=== PATIENT | male | born 1930 | race Two or more races ===

== ENCOUNTER 2016-07-03 22:44 | Inpatient (IN) | payer BC, MEDICARE, OTHER ==
[~2016-07-03] VITALS: Ht 182.9 cm; Wt 72.6 kg
[~2016-07-03 22:44] MED LIST: ATOR20TA PO; BRIM5DRO3 EACHEYE; DONE10TA4 PO; LATA2.5D7 EACHEYE; MEMA28CA PO; METF500T4 PO; WARF5TAB77 PO
[2016-07-03] MEDS ORDERED: DEXT1DRO3 OP (23:11)
[2016-07-03] MEDS ORDERED: LORA0.5T PO (23:11)
[2016-07-03] MEDS ORDERED: QUET25TA PO (23:11)
[2016-07-03] MEDS ORDERED: DORZ10DR11 EACHEYE (23:11)
[2016-07-03] MEDS ORDERED: ACET650T10 PO (23:11)
[2016-07-03] MEDS ORDERED: PANT40TA4 PO (23:11)
[2016-07-03] MEDS ORDERED: MEMA10TA21 PO (23:11)
[2016-07-03] MEDS ORDERED: WARF3TAB6 PO (23:11)
[2016-07-03] MEDS ORDERED: MAGN400O6 PO (23:11)
[2016-07-03] MEDS ORDERED: NA P133E RC (23:11)
[2016-07-03] MEDS ORDERED: BISA10SU8 RC (23:11)
[2016-07-03] MEDS ORDERED: VALP250S3 PO (23:11)
[2016-07-03 23:21] LABS: KETONES,URINE 1+ (NEGATIVE); LEUKOCYTE ESTERASE ,URINE NEGATIVE (NEGATIVE)
[2016-07-03 23:22] LABS: ANION GAP 11 (5-14); CALCIUM, SERUM 8.9 mg/dL (8.5-10.1); CARBON DIOXIDE 32 mmol/L (21-32); CHLORIDE 105 mmol/L (98-107); CREATININE 1.9 mg/dL (0.6-1.3); GLUCOSE 177 mg/dL (74-106); POTASSIUM 4.2 mmol/L (3.5-5.1); SODIUM SERUM 144 mmol/L (136-145); UREA NITROGEN, BLOOD 37 mg/dL (7-18)
[2016-07-03 23:23] LABS: BASOPHILS % (AUTO) 0.3 % (0.0-2.0); DIFF TOTAL % 100 %; EOSINOPHILS # (AUTO) 0.1 /CMM (0.0-0.7); EOSINOPHILS % (AUTO) 0.8 % (0.0-6.0); HEMATOCRIT 41 % (39-51); HEMOGLOBIN 13.4 g/dL (13.5-17.5); LYMPHOCYTES # (AUTO) 1.9 /CMM (0.8-4.8); LYMPHOCYTES % (AUTO) 27.5 % (20.0-44.0); MEAN CORPUSCULAR HEMOGLOBIN 29 PG (26.0-33.0); MEAN CORPUSCULAR HGB CONC 32 g/dl (31.0-36.0); MEAN CORPUSCULAR VOLUME 88 fL (80-96); MONOCYTES # (AUTO) 0.7 /CMM (0.1-1.30); MONOCYTES % (AUTO) 10.8 % (2.0-12.0); NEUTROPHILS # (AUTO) 4.2 /CMM (1.8-8.9); NEUTROPHILS % (AUTO) 60.6 % (43.0-81.0); PLATELET COUNT (AUTO) 150 /CMM (150-450); RED BLOOD CELL COUNT(AUTO) 4.67 MIL/uL (4.5-6.0); WHITE BLOOD COUNT (AUTO) 6.9 K/uL (4.3-11.0)
[2016-07-03 23:26] LABS: ADD UA MICROSCOPIC YES
[2016-07-03 23:27] LABS: ALANINE AMINOTRANSFERASE 19 U/L (12-78); ALBUMIN 3.6 g/dL (3.4-5.0); ASPARTATE AMINOTRANSFERASE 19 U/L (15-37); BILIRUBIN,DIRECT 0.2 mg/dL (0.0-0.2); BILIRUBIN,TOTAL 0.9 mg/dL (0.2-1.0); INDIRECT BILIRUBIN 0.7 mg/dL (0.0-1.1); TOTAL PROTEIN, SERUM 7.7 g/dL (6.4-8.2)
[2016-07-03 23:27] LABS: CANNABINOID, URINE NEGATIVE (NEGATIVE); PHENCYCLIDINE SCREEN,URINE NEGATIVE (NEGATIVE)
[2016-07-03 23:28] LABS: ADD URINE CULTURE NO; RBC,URINE NONE SEEN /HPF (0-2); WBC,URINE 0-2 /HPF (0-3)
[2016-07-03 23:29] LABS: ACETAMINOPHEN 0 ug/ml (10-30); SALICYLATE 0.3 mg/dL (2.8-20.0)
[2016-07-03] MEDS ORDERED: IV NS 0.9% 1,000 ML ONE (23:48)
[2016-07-03] MEDS ORDERED: IV SET PRIMARY 1 EA INFUS.SET MC ONE (23:48)
[2016-07-04] MEDS ORDERED: IV NS 0.9% 1,000 ML BAG IV ONE
[2016-07-04] MEDS ORDERED: MAGNESIUM HYDROXIDE 30 ML UDC PO PRN ×2 (03:00→08:00)
[2016-07-04] MEDS ORDERED: LORAZEPAM 0.5 MG TABLET PO PRN (03:00)
[2016-07-04] MEDS ORDERED: MAG HYDROX/AL HYDROX/SIMETH 30 ML UDC PO PRN (03:00)
[2016-07-04] MEDS ORDERED: ACETAMINOPHEN 325 MG TABLET PO PRN (03:00)
[2016-07-04 08:00] VITALS: BP 122/74
[2016-07-04] MEDS ORDERED: BISACODYL SUPP (10 MG) 10 MG/SUPP.RECT SUPP.RECT RC PRN (08:00)
[2016-07-04] MEDS ORDERED: TIMOLOL MAL/DORZOLAM HCL OPHTH 10 ML BOTTLE EACHEYE SCH (09:00)
[2016-07-04 10:21] LABS: CREATININE 1.4 mg/dL (0.6-1.3)
[2016-07-04] MEDS: METFORMIN 500 MG TABLET PO SCH ×2 (10:22→17:09)
[2016-07-04] MEDS: DIVALPROEX SODIUM 250 MG TABLET.DR PO SCH ×2 (10:22→12:44)
[2016-07-04 11:04] LABS: INR 2.55 (0.87-1.13); PROTHROMBIN TIME 27.8 SECS (9.5-12.7)
[2016-07-04] MEDS: POLYVINYL ALCOHOL 15 ML BOTTLE EACHEYE SCH ×3 (11:23→17:10)
[2016-07-04] MEDS: TIMOLOL 0.5% SOLN OPHTH 5 ML BOTTLE EACHEYE SCH ×3 (11:23→17:10)
[2016-07-04] MEDS: DORZOLAMIDE OPTH 2% 10 ML BOTTLE EACHEYE SCH ×3 (11:24→17:10)
[2016-07-04] MEDS ORDERED: QUETIAPINE FUMARATE 25 MG TABLET PO SCH (14:30)
[2016-07-04] MEDS ORDERED: DIVALPROEX SODIUM 125 MG CAP.SPRINK PO SCH (14:30)
[2016-07-04 16:00] VITALS: BP 105/64
[2016-07-04] MEDS: DIVALPROEX SODIUM 125 MG CAP.SPRINK PO SCH (17:08)
[2016-07-04] MEDS: WARFARIN SODIUM 1 MG TABLET PO SCH (17:08)
[2016-07-04] MEDS: MEMANTINE HCL 5 MG TABLET PO SCH (17:09)
[2016-07-04] MEDS: QUETIAPINE FUMARATE 25 MG TABLET PO SCH (17:09)
[2016-07-04 20:00] VITALS: BP 115/80
[2016-07-04] MEDS: LATANOPROST EYE DROP 0.005% 2.5 ML BOTTLE EACHEYE SCH (21:45)
[2016-07-04] MEDS: PANTOPRAZOLE 40 MG TABLET.DR PO SCH (21:45)
[2016-07-04] MEDS: DONEPEZIL 5 MG TABLET PO SCH (21:45)
[2016-07-04] MEDS: ATORVASTATIN 10 MG TABLET PO SCH (21:46)
[2016-07-05] MEDS: TEMAZEPAM 7.5 MG CAPSULE PO PRN (00:15)
[2016-07-05 08:00] VITALS: BP 118/69
[2016-07-05 09:59] LABS: INR 2.55 (0.87-1.13); PROTHROMBIN TIME 27.8 SECS (9.5-12.7)
[2016-07-05] MEDS: MEMANTINE HCL 5 MG TABLET PO SCH ×2 (10:37→17:46)
[2016-07-05] MEDS: METFORMIN 500 MG TABLET PO SCH ×2 (10:37→17:43)
[2016-07-05] MEDS: QUETIAPINE FUMARATE 25 MG TABLET PO SCH ×2 (10:38→17:36)
[2016-07-05] MEDS: DIVALPROEX SODIUM 125 MG CAP.SPRINK PO SCH ×3 (10:38→17:32)
[2016-07-05] MEDS: TIMOLOL 0.5% SOLN OPHTH 5 ML BOTTLE EACHEYE SCH ×2 (10:39→17:48)
[2016-07-05] MEDS: POLYVINYL ALCOHOL 15 ML BOTTLE EACHEYE SCH ×2 (10:39→17:48)
[2016-07-05] MEDS: DORZOLAMIDE OPTH 2% 10 ML BOTTLE EACHEYE SCH ×2 (10:39→17:49)
[2016-07-05 16:00] VITALS: BP 100/60
[2016-07-05] MEDS: WARFARIN SODIUM 1 MG TABLET PO SCH (17:42)
[2016-07-05 20:00] VITALS: BP 102/67
[2016-07-05] MEDS: LATANOPROST EYE DROP 0.005% 2.5 ML BOTTLE EACHEYE SCH (21:05)
[2016-07-05] MEDS: PANTOPRAZOLE 40 MG TABLET.DR PO SCH (21:06)
[2016-07-05] MEDS: ATORVASTATIN 10 MG TABLET PO SCH (21:06)
[2016-07-05] MEDS: DONEPEZIL 5 MG TABLET PO SCH (21:06)
[2016-07-06] MEDS: TEMAZEPAM 7.5 MG CAPSULE PO PRN (01:16)
[2016-07-06 08:00] VITALS: BP 152/76
[2016-07-06] MEDS: DORZOLAMIDE OPTH 2% 10 ML BOTTLE EACHEYE SCH ×2 (08:38→17:00)
[2016-07-06] MEDS: DIVALPROEX SODIUM 125 MG CAP.SPRINK PO SCH ×3 (08:38→17:00)
[2016-07-06] MEDS: TIMOLOL 0.5% SOLN OPHTH 5 ML BOTTLE EACHEYE SCH ×2 (08:38→17:00)
[2016-07-06] MEDS: POLYVINYL ALCOHOL 15 ML BOTTLE EACHEYE SCH ×2 (08:38→17:00)
[2016-07-06] MEDS: QUETIAPINE FUMARATE 25 MG TABLET PO SCH ×2 (08:39→17:00)
[2016-07-06] MEDS: MEMANTINE HCL 5 MG TABLET PO SCH ×2 (08:39→17:00)
[2016-07-06] MEDS: METFORMIN 500 MG TABLET PO SCH ×2 (08:39→17:00)
[2016-07-06 08:53] LABS: INR 3.47 (0.87-1.13)
[2016-07-06] MEDS ORDERED: Z GUARD REMEDY 2 OZ OINT TP SCH (11:30)
[2016-07-06 16:00] VITALS: BP 122/90
[2016-07-06 20:00] VITALS: BP 130/79
[2016-07-06] MEDS: PANTOPRAZOLE 40 MG TABLET.DR PO SCH (22:00)
[2016-07-06] MEDS: LATANOPROST EYE DROP 0.005% 2.5 ML BOTTLE EACHEYE SCH (22:00)
[2016-07-06] MEDS: DONEPEZIL 5 MG TABLET PO SCH (22:00)
[2016-07-06] MEDS: ATORVASTATIN 10 MG TABLET PO SCH (22:00)
[2016-07-07 08:11] VITALS: BP 105/62
[2016-07-07 08:12] LABS: BASOPHILS % (AUTO) 0.4 % (0.0-2.0); DIFF TOTAL % 100 %; EOSINOPHILS # (AUTO) 0.1 /CMM (0.0-0.7); EOSINOPHILS % (AUTO) 1.9 % (0.0-6.0); HEMATOCRIT 41 % (39-51); HEMOGLOBIN 13.5 g/dL (13.5-17.5); LYMPHOCYTES # (AUTO) 1.8 /CMM (0.8-4.8); LYMPHOCYTES % (AUTO) 31.3 % (20.0-44.0); MEAN CORPUSCULAR HEMOGLOBIN 29 PG (26.0-33.0); MEAN CORPUSCULAR HGB CONC 33 g/dl (31.0-36.0); MEAN CORPUSCULAR VOLUME 88 fL (80-96); MONOCYTES # (AUTO) 0.5 /CMM (0.1-1.30); MONOCYTES % (AUTO) 8.3 % (2.0-12.0); NEUTROPHILS # (AUTO) 3.4 /CMM (1.8-8.9); NEUTROPHILS % (AUTO) 58.1 % (43.0-81.0); PLATELET COUNT (AUTO) 145 /CMM (150-450); RED BLOOD CELL COUNT(AUTO) 4.67 MIL/uL (4.5-6.0); WHITE BLOOD COUNT (AUTO) 5.9 K/uL (4.3-11.0)
[2016-07-07 08:16] LABS: INR 2.91 (0.87-1.13); PROTHROMBIN TIME 31.8 SECS (9.5-12.7)
[2016-07-07] MEDS: DIVALPROEX SODIUM 125 MG CAP.SPRINK PO SCH ×3 (08:55→17:25)
[2016-07-07] MEDS: METFORMIN 500 MG TABLET PO SCH ×2 (08:55→17:25)
[2016-07-07] MEDS: MEMANTINE HCL 5 MG TABLET PO SCH ×2 (08:55→17:25)
[2016-07-07] MEDS: QUETIAPINE FUMARATE 25 MG TABLET PO SCH ×2 (08:56→17:25)
[2016-07-07 09:33] LABS: CALCIUM, SERUM 9.2 mg/dL (8.5-10.1); CREATININE 1.3 mg/dL (0.6-1.3); POTASSIUM 4.2 mmol/L (3.5-5.1)
[2016-07-07] MEDS: DORZOLAMIDE OPTH 2% 10 ML BOTTLE EACHEYE SCH ×2 (09:42→17:31)
[2016-07-07] MEDS: TIMOLOL 0.5% SOLN OPHTH 5 ML BOTTLE EACHEYE SCH ×2 (09:42→17:31)
[2016-07-07] MEDS: POLYVINYL ALCOHOL 15 ML BOTTLE EACHEYE SCH ×2 (09:42→17:31)
[2016-07-07 16:00] VITALS: BP 102/63
[2016-07-07 19:51] VITALS: BP 98/61
[2016-07-07] MEDS: DONEPEZIL 5 MG TABLET PO SCH (23:21)
[2016-07-07] MEDS: ATORVASTATIN 10 MG TABLET PO SCH (23:21)
[2016-07-07] MEDS: PANTOPRAZOLE 40 MG TABLET.DR PO SCH (23:33)
[2016-07-07] MEDS: LATANOPROST EYE DROP 0.005% 2.5 ML BOTTLE EACHEYE SCH (23:39)
[2016-07-08 08:00] VITALS: BP 104/64
[2016-07-08 08:14] LABS: INR 2.08 (0.87-1.13); PROTHROMBIN TIME 22.6 SECS (9.5-12.7)
[2016-07-08] MEDS: METFORMIN 500 MG TABLET PO SCH ×2 (08:41→17:27)
[2016-07-08] MEDS: MEMANTINE HCL 5 MG TABLET PO SCH ×2 (08:41→17:27)
[2016-07-08] MEDS: DIVALPROEX SODIUM 125 MG CAP.SPRINK PO SCH ×3 (08:41→17:27)
[2016-07-08] MEDS: QUETIAPINE FUMARATE 25 MG TABLET PO SCH ×2 (08:41→17:27)
[2016-07-08] MEDS: POLYVINYL ALCOHOL 15 ML BOTTLE EACHEYE SCH ×2 (08:45→17:31)
[2016-07-08] MEDS: TIMOLOL 0.5% SOLN OPHTH 5 ML BOTTLE EACHEYE SCH ×2 (08:45→17:32)
[2016-07-08] MEDS: DORZOLAMIDE OPTH 2% 10 ML BOTTLE EACHEYE SCH ×2 (08:46→17:33)
[2016-07-08 16:00] VITALS: BP 104/60
[2016-07-08] MEDS ORDERED: WARFARIN SODIUM 1 MG TABLET PO SCH (18:00)
[2016-07-08 19:49] VITALS: BP 128/73
[2016-07-08] MEDS: DONEPEZIL 5 MG TABLET PO SCH (21:54)
[2016-07-08] MEDS: ATORVASTATIN 10 MG TABLET PO SCH (21:54)
[2016-07-08] MEDS: PANTOPRAZOLE 40 MG TABLET.DR PO SCH (21:54)
[2016-07-08] MEDS: LATANOPROST EYE DROP 0.005% 2.5 ML BOTTLE EACHEYE SCH (21:57)
[2016-07-09 08:00] VITALS: BP 116/68
[2016-07-09 08:26] LABS: INR 1.95 (0.87-1.13); PROTHROMBIN TIME 21.2 SECS (9.5-12.7)
[2016-07-09] MEDS: METFORMIN 500 MG TABLET PO SCH (08:59)
[2016-07-09] MEDS: MEMANTINE HCL 5 MG TABLET PO SCH (08:59)
[2016-07-09] MEDS: DIVALPROEX SODIUM 125 MG CAP.SPRINK PO SCH (08:59)
[2016-07-09] MEDS: QUETIAPINE FUMARATE 25 MG TABLET PO SCH (09:00)
[2016-07-09] MEDS: TIMOLOL 0.5% SOLN OPHTH 5 ML BOTTLE EACHEYE SCH (09:08)
[2016-07-09] MEDS: DORZOLAMIDE OPTH 2% 10 ML BOTTLE EACHEYE SCH (09:08)
[2016-07-09] MEDS: POLYVINYL ALCOHOL 15 ML BOTTLE EACHEYE SCH (09:08)
== END 2016-07-09 12:45 | DRG 885 ==
LOC: ER 22:58 → GPS 07-04 02:25
PROVIDERS: ADMIT Psychiatry & Neurology Psychiatry; ATTEND Nurse Practitioner Acute Care
DX: F29 Unspecified psychosis not due to a substance or known physiological condition (principal); N17.9 Acute kidney failure, unspecified; D68.59 Other primary thrombophilia; E11.22 Type 2 diabetes mellitus with diabetic chronic kidney disease; E78.5 Hyperlipidemia, unspecified; F03.90 Unspecified dementia, unspecified severity, without behavioral disturbance, psychotic disturbance, mood disturbance, and anxiety; F39 Unspecified mood [affective] disorder; I12.9 Hypertensive chronic kidney disease with stage 1 through stage 4 chronic kidney disease, or unspecified chronic kidney disease; I48.91 Unspecified atrial fibrillation; K21.9 Gastro-esophageal reflux disease without esophagitis; Z73.6 Limitation of activities due to disability; N18.2 Chronic kidney disease, stage 2 (mild); Z79.01 Long term (current) use of anticoagulants
CPT/HCPCS: 36415; 80048-TC; 80061-TC; 80076-TC; 80164-TC; 80305; 81000-TC; 82565-TC; 82962-TC; 85025-TC; 85610-TC; 87081-TC; A4606; G0480; G6039-TC; J7030; Z7610

== ENCOUNTER 2016-09-10 23:09 | Emergency (ER) | payer BC, OTHER ==
[~2016-09-10] VITALS: Ht 175.3 cm; Wt 63.5 kg
[~2016-09-10 23:09] MED LIST changes: +ACET650T10 PO; +BISA10SU8 RC; -BRIM5DRO3 EACHEYE; +DEXT1DRO3 OP; +DORZ10DR11 EACHEYE; +MAGN400O6 PO; +MEMA10TA21 PO; -MEMA28CA PO; +NA P133E RC; +PANT40TA4 PO; +VALP250S3 PO; +WARF3TAB6 PO; -WARF5TAB77 PO
--- NOTE | 2016-09-10 23:15 | NUR ---
To bed 6 an 85 yo male bibra from [facility] home for "trip and fall." No visible trauma noted. Responsive to verbal and tactile stimuli. Denies any pain or discomfort. VSS. Breathing even and unlabored. No s/s of acute distress. Nondiaphoretic. Initiated comfort and safety measures. Reorietation done. Awaiting for er md faustin.
[2016-09-10] MEDS ORDERED: WARF2TAB6 PO (23:26)
[2016-09-10] MEDS ORDERED: QUET25TA PO (23:26)
[2016-09-10] MEDS ORDERED: BRIM5DRO3 EACHEYE (23:26)
[2016-09-10] MEDS ORDERED: DIVA250T6 PO (23:26)
[2016-09-11 00:09] LABS: BASOPHILS % (AUTO) 0.3 % (0.0-2.0); EOSINOPHILS # (AUTO) 0.1 /CMM (0.0-0.7); HEMATOCRIT 34 % (39-51); HEMOGLOBIN 11.1 g/dL (13.5-17.5); LYMPHOCYTES # (AUTO) 2.1 /CMM (0.8-4.8); LYMPHOCYTES % (AUTO) 27.2 % (20.0-44.0); MEAN CORPUSCULAR HEMOGLOBIN 30 PG (26.0-33.0); MEAN CORPUSCULAR HGB CONC 33 g/dl (31.0-36.0); MEAN CORPUSCULAR VOLUME 92 fL (80-96); MONOCYTES # (AUTO) 0.8 /CMM (0.1-1.30); MONOCYTES % (AUTO) 10.1 % (2.0-12.0); NEUTROPHILS # (AUTO) 4.7 /CMM (1.8-8.9); NEUTROPHILS % (AUTO) 61.4 % (43.0-81.0); PLATELET COUNT (AUTO) 169 /CMM (150-450); RDW COEFFICIENT OF VARIATION 15.2 (11.5-15.0); RED BLOOD CELL COUNT(AUTO) 3.66 MIL/uL (4.5-6.0); WHITE BLOOD COUNT (AUTO) 7.7 K/uL (4.3-11.0)
[2016-09-11 00:22] LABS: INR 1.09 (0.87-1.13); PROTHROMBIN TIME 11.7 SECS (9.5-12.7)
[2016-09-11 00:23] LABS: CALCIUM, SERUM 8.3 mg/dL (8.5-10.1); CARBON DIOXIDE 30 mmol/L (21-32); CHLORIDE 107 mmol/L (98-107); CREATININE 0.9 mg/dL (0.6-1.3); GLUCOSE 121 mg/dL (74-106); POTASSIUM 3.9 mmol/L (3.5-5.1); SERUM AMMONIA < 10 umol/L (11-32); SODIUM SERUM 143 mmol/L (136-145); UREA NITROGEN, BLOOD 20 mg/dL (7-18)
[2016-09-11 00:29] LABS: ALANINE AMINOTRANSFERASE 17 U/L (12-78); ALKALINE PHOSPHATASE 70 U/L (46-116); ASPARTATE AMINOTRANSFERASE 11 U/L (15-37); BILIRUBIN,DIRECT 0.1 mg/dL (0.0-0.2); BILIRUBIN,TOTAL 0.6 mg/dL (0.2-1.0); TOTAL PROTEIN, SERUM 6.4 g/dL (6.4-8.2)
--- NOTE | 2016-09-11 02:20 | NUR ---
report given to paramedics, patient picked up by ems. VSS. No further complaints.
[2016-09-11 02:23] VITALS: BP 118/68
== END 2016-09-11 02:24 | disposition home or self-care (01) ==
LOC: ER 23:11
DX: F03.90 Unspecified dementia, unspecified severity, without behavioral disturbance, psychotic disturbance, mood disturbance, and anxiety (principal); I10 Essential (primary) hypertension; I48.91 Unspecified atrial fibrillation; F29 Unspecified psychosis not due to a substance or known physiological condition; G93.40 Encephalopathy, unspecified; Z98.890 Other specified postprocedural states; W18.39XA Other fall on same level, initial encounter; Y93.89 Activity, other specified; Y92.89 Other specified places as the place of occurrence of the external cause; Y99.8 Other external cause status
CPT/HCPCS: 36415; 70450-TC; 72125-TC; 72170-TC; 80048-TC; 80076-TC; 82140-TC; 85025-TC; 85730-TC; A4606; Z7610

== ENCOUNTER 2016-09-25 02:27 | Inpatient (IN) | payer BC, OTHER ==
[~2016-09-25] VITALS: Ht 177.8 cm; Wt 70.8 kg
[~2016-09-25 02:27] MED LIST changes: +BRIM5DRO3 EACHEYE; +DIVA250T6 PO; +QUET25TA PO; -VALP250S3 PO; +WARF2TAB6 PO; -WARF3TAB6 PO
--- NOTE | 2016-09-25 02:40 | NUR ---
85 YO FEMALE [facility]. PT IS NON VERBAL, DS TO ER BED 7. PER EMT PT WAS SENT FROM SNF FOR AGGRESSION. NAD NOTED, PT RESTING IN ER BED, SKIN WARM AND DRY, RR EVEN AND UNLABORED. AWAITING ORDERS FROM PROVIDER
--- NOTE | 2016-09-25 03:04 | NUR ---
IN AND OUT JACOBSON DONE WITHOUT INCIDENT
[2016-09-25 03:12] LABS: BASOPHILS % (AUTO) 0.5 % (0.0-2.0); EOSINOPHILS # (AUTO) 0.1 /CMM (0.0-0.7); EOSINOPHILS % (AUTO) 1.2 % (0.0-6.0); HEMATOCRIT 35 % (39-51); HEMOGLOBIN 11.4 g/dL (13.5-17.5); LYMPHOCYTES # (AUTO) 2.1 /CMM (0.8-4.8); LYMPHOCYTES % (AUTO) 32.6 % (20.0-44.0); MEAN CORPUSCULAR HEMOGLOBIN 30 PG (26.0-33.0); MEAN CORPUSCULAR HGB CONC 32 g/dl (31.0-36.0); MEAN CORPUSCULAR VOLUME 92 fL (80-96); MONOCYTES # (AUTO) 0.6 /CMM (0.1-1.30); NEUTROPHILS # (AUTO) 3.6 /CMM (1.8-8.9); NEUTROPHILS % (AUTO) 56.7 % (43.0-81.0); PLATELET COUNT (AUTO) 184 /CMM (150-450); RDW COEFFICIENT OF VARIATION 13.8 (11.5-15.0); RED BLOOD CELL COUNT(AUTO) 3.83 MIL/uL (4.5-6.0); WHITE BLOOD COUNT (AUTO) 6.4 K/uL (4.3-11.0)
[2016-09-25 03:26] LABS: APPEARANCE,URINE CLEAR (CLEAR); BILIRUBIN,URINE NEGATIVE (NEGATIVE); BLOOD, URINE NEGATIVE Ery/uL (NEGATIVE); COLOR,URINE YELLOW (YELLOW); KETONES,URINE NEGATIVE (NEGATIVE); LEUKOCYTE ESTERASE ,URINE NEGATIVE (NEGATIVE); NITRITE, URINE NEGATIVE (NEGATIVE); PROTEIN,URINE NEGATIVE (NEGATIVE); UGLUCOSE NEGATIVE (NEGATIVE)
[2016-09-25 03:28] LABS: CALCIUM, SERUM 8.3 mg/dL (8.5-10.1); CARBON DIOXIDE 32 mmol/L (21-32); CHLORIDE 110 mmol/L (98-107); CREATININE 0.9 mg/dL (0.6-1.3); GLUCOSE 118 mg/dL (74-106); POTASSIUM 3.8 mmol/L (3.5-5.1); SODIUM SERUM 146 mmol/L (136-145); UREA NITROGEN, BLOOD 21 mg/dL (7-18)
[2016-09-25 03:33] LABS: ALANINE AMINOTRANSFERASE 16 U/L (12-78); ALBUMIN 3.1 g/dL (3.4-5.0); ALCOHOL, BLOOD < 3 mg/dL (0-0); ALKALINE PHOSPHATASE 91 U/L (46-116); ASPARTATE AMINOTRANSFERASE 12 U/L (15-37); BILIRUBIN,DIRECT 0.1 mg/dL (0.0-0.2); BILIRUBIN,TOTAL 0.6 mg/dL (0.2-1.0); INR 1.06 (0.87-1.13); PROTHROMBIN TIME 11.4 SECS (9.5-12.7); TOTAL PROTEIN, SERUM 6.6 g/dL (6.4-8.2)
[2016-09-25 03:34] LABS: SALICYLATE 0.2 mg/dL (2.8-20.0)
[2016-09-25 03:35] LABS: ACETAMINOPHEN 0 ug/ml (10-30)
[2016-09-25 03:40] LABS: ADD URINE CULTURE NO; BACTERIA,URINE None seen /HPF (None Seen); MUCUS,URINE Few /LPF (None Seen); RBC,URINE 0-3 /HPF (0-2); SQUAMOUS EPITHELIAL CELL,UR Few /HPF (None Seen); WBC,URINE 0-3 /HPF (0-3)
[2016-09-25 03:46] LABS: CANNABINOID, URINE NEGATIVE (NEGATIVE); PHENCYCLIDINE SCREEN,URINE NEGATIVE (NEGATIVE)
--- NOTE | 2016-09-25 06:25 | NUR ---
PT RESTING IN ER BED, NAD NOTED, SKIN WARM AND DRY, RR EVEN AND UNLABORED. 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 WILL CONITUE TO MONITOR
--- NOTE | 2016-09-25 06:29 | NUR ---
ART AT BED SIDE FOR EVAL
--- NOTE | 2016-09-25 07:20 | NUR ---
REPORT GIVEN TO RN FOR [facility] ADMISSION
--- NOTE | 2016-09-25 07:56 | NUR ---
REPORT GIVEN TO GISELLE EDMONDS RN FOR KARRIE
--- NOTE | 2016-09-25 07:57 | NUR ---
PT TRANSPORTED TO [facility] B[facility] WITHOUT INCIDENT
[2016-09-25] MEDS ORDERED: ASPI325T2 PO (08:03)
[2016-09-25 08:45] VITALS: BP 115/59
--- NOTE | 2016-09-25 08:45 | NUR ---
GP-RN-NOTES: PT IS 85 YEARS OLD FEMALE 85 YEARS OLD MALE ADMITTED ON 5150 FOR GD. ACCORDING TO THE HOLD PT IS AGGRESSIVE AND AGITATED, CONFUSED, DISORGANIZED, NON-COMPLIANT WITH MEDICATIONS, DELUSIONAL. PT IS UNABLE TO CARE FOR SELF. UPON [id number] ASSESSMENT PT IS DISHEVELED, UNKEMPT,. PT HAS DEMENTIA, AFIB, DIABETES. NOTIFIED DR. CALDWELL AND ASH CONVEYOR OPERATOR PIA JOSHI. BELONGINGS STORED AND DOCUMENTED. PT'S RIGHT BOOKLET WAS GIVEN. EXPLAINED ABOUT LUNCH TIME AND FRESH AIR SCHEDULED. SKIN ASSESSMENT DONE.
[2016-09-25] MEDS ORDERED: LORAZEPAM 0.5 MG TABLET PO PRN (09:00)
[2016-09-25] MEDS ORDERED: MAG HYDROX/AL HYDROX/SIMETH 30 ML UDC PO PRN (09:00)
[2016-09-25] MEDS ORDERED: ACETAMINOPHEN 325 MG TABLET PO PRN (09:00)
[2016-09-25] MEDS ORDERED: ZOLPIDEM TARTRATE 10 MG TABLET PO PRN (09:00)
[2016-09-25] MEDS ORDERED: MAGNESIUM HYDROXIDE 30 ML UDC PO PRN ×2 (09:00→18:30)
--- NOTE | 2016-09-25 10:00 | NUR ---
[id number]: PT IS OBSERVED TO BE CONFUSED, IRRITABLE, EASILY AGITATED. DECREASE STIMULI BY ESCORTING PT TO ROOM.
--- NOTE | 2016-09-25 11:15 | NUR ---
Initial discharge plan: Patient resides at [facility] [address] [place] [address] SW spoke to (Matilda King: [phone]/ cell: [phone])who wants pt. to return to [facility]. SW will help form a safe and proper discharge. SW contacted facility to confirm readmission but have not been able to get confirmation at this point. Will attempt again.
--- NOTE | 2016-09-25 12:13 | NUR ---
[id number]: PT BLOOD SUGAR IS 196 MG/DL AND PT REFUSED INSULIN AT THIS TIME
[2016-09-25] MEDS ORDERED: DEXTROSE 50%-WATER 50 ML DISP.SYRIN IV PRN (12:30)
[2016-09-25] MEDS: BLOOD SUGAR DIAGNOSTIC 1 EACH STRIP IN SCH ×3 (12:52→21:59)
[2016-09-25 16:00] VITALS: BP 120/60
[2016-09-25] MEDS: INSULIN REGULAR, HUMAN 100 UNIT/ML 3 ML VIAL SQ PRN ×2 (17:19→22:01)
--- NOTE | 2016-09-25 17:19 | NUR ---
[id number]: BLOOD SUGAR IS 202 MG/DL AND GAVE 4 UNITS OF REGULAR INSULIN
[2016-09-25] MEDS ORDERED: NA PHOS,M-B/NA PHOS,DI-BA 1 EA ENEMA RC PRN (18:30)
[2016-09-25] MEDS ORDERED: Medication Not On Formulary EA (Acetaminophen 650 MG) PO PRN (18:30)
[2016-09-25] MEDS ORDERED: BISACODYL SUPP (10 MG) 10 MG/SUPP.RECT SUPP.RECT RC PRN (18:30)
[2016-09-25] MEDS: DIVALPROEX SODIUM 250 MG TABLET.DR PO SCH (18:59)
[2016-09-25] MEDS: METFORMIN 500 MG TABLET PO SCH (18:59)
[2016-09-25] MEDS: ASPIRIN 325 MG TABLET PO SCH (18:59)
[2016-09-25] MEDS: PANTOPRAZOLE 40 MG TABLET.DR PO SCH (18:59)
--- NOTE | 2016-09-25 19:34 | NUR ---
[id number]: NOTIFIED DR. JONES ABOUT NEW ADMISSION AND MED RECON NEED FOR PT. LAB VALUE FOR TODAY ID 09/25/16: BW=[id number]. NO NEW ORDERS GIVEN AT THIS TIME
[2016-09-25 20:11] VITALS: BP 114/60
[2016-09-25] MEDS: QUETIAPINE FUMARATE 25 MG TABLET PO SCH (21:33)
[2016-09-25] MEDS: DONEPEZIL 5 MG TABLET PO SCH (21:34)
[2016-09-25] MEDS: TIMOLOL MAL/DORZOLAM HCL OPHTH 10 ML BOTTLE EACHEYE SCH (21:36)
[2016-09-25] MEDS: BRIMONIDINE TARTRATE OPHT SOLN 5 ML BOTTLE OP SCH (21:36)
[2016-09-25] MEDS: LATANOPROST EYE DROP 0.005% 2.5 ML BOTTLE EACHEYE SCH (21:37)
[2016-09-25] MEDS: POLYVINYL ALCOHOL 15 ML BOTTLE EACHEYE SCH (21:38)
[2016-09-25] MEDS: MEMANTINE HCL 5 MG TABLET PO SCH (21:43)
[2016-09-26 06:38] LABS: ALBUMIN 2.6 g/dL (3.4-5.0); BILIRUBIN,TOTAL 0.7 mg/dL (0.2-1.0); CALCIUM, SERUM 7.9 mg/dL (8.5-10.1); CREATININE 0.8 mg/dL (0.6-1.3); POTASSIUM 3.4 mmol/L (3.5-5.1); TOTAL PROTEIN, SERUM 5.5 g/dL (6.4-8.2)
[2016-09-26] MEDS: BLOOD SUGAR DIAGNOSTIC 1 EACH STRIP IN SCH ×4 (07:41→21:24)
[2016-09-26 08:00] VITALS: BP 116/59
[2016-09-26] MEDS: ASPIRIN 325 MG TABLET PO SCH (08:25)
[2016-09-26] MEDS: METFORMIN 500 MG TABLET PO SCH ×2 (08:25→16:19)
[2016-09-26] MEDS: DIVALPROEX SODIUM 250 MG TABLET.DR PO SCH ×3 (08:25→16:19)
[2016-09-26] MEDS: MEMANTINE HCL 5 MG TABLET PO SCH ×2 (08:25→16:19)
[2016-09-26] MEDS: QUETIAPINE FUMARATE 25 MG TABLET PO SCH ×2 (08:25→21:24)
[2016-09-26] MEDS: PANTOPRAZOLE 40 MG TABLET.DR PO SCH (08:25)
[2016-09-26] MEDS: POLYVINYL ALCOHOL 15 ML BOTTLE EACHEYE SCH ×2 (08:26→16:18)
[2016-09-26] MEDS: BRIMONIDINE TARTRATE OPHT SOLN 5 ML BOTTLE OP SCH ×2 (08:26→16:18)
[2016-09-26] MEDS: TIMOLOL MAL/DORZOLAM HCL OPHTH 10 ML BOTTLE EACHEYE SCH ×2 (08:26→16:18)
[2016-09-26] MEDS: INSULIN REGULAR, HUMAN 100 UNIT/ML 3 ML VIAL SQ PRN ×2 (12:26→17:25)
--- NOTE | 2016-09-26 12:35 | NUR ---
STEFANO spoke with Paola, admission coordinator from [facility] [address] [facility] [address] in regards to patient's readmission. She said Juju is their business administrator and she is the one deciding whether pt. can return. She was not available; hence, Paola took the STEFANO's number and promised to have Juju call back. STEFANO will follow up
[2016-09-26 15:45] LABS: INR 1.06 (0.87-1.13); PROTHROMBIN TIME 11.4 SECS (9.5-12.7)
[2016-09-26 16:00] VITALS: BP 100/60
--- NOTE | 2016-09-26 16:27 | NUR ---
STEFANO spoke with Leonarda from [facility] [address] [place] [address] who notified that if pt. is stable, he is able to return back to the facility
[2016-09-26] MEDS: POTASSIUM CHLORIDE 20 MEQ TAB.PRT.SR PO SCH (16:39)
[2016-09-26 20:00] VITALS: BP 107/68
[2016-09-26] MEDS: ATORVASTATIN 10 MG TABLET PO SCH (21:24)
[2016-09-26] MEDS: LATANOPROST EYE DROP 0.005% 2.5 ML BOTTLE EACHEYE SCH (21:24)
[2016-09-26] MEDS: DONEPEZIL 5 MG TABLET PO SCH (21:24)
[2016-09-27 08:00] VITALS: BP 107/53
[2016-09-27] MEDS: BLOOD SUGAR DIAGNOSTIC 1 EACH STRIP IN SCH ×4 (08:10→22:09)
[2016-09-27] MEDS: QUETIAPINE FUMARATE 25 MG TABLET PO SCH ×2 (08:27→21:14)
[2016-09-27] MEDS: DIVALPROEX SODIUM 250 MG TABLET.DR PO SCH ×3 (08:27→16:34)
[2016-09-27] MEDS: MEMANTINE HCL 5 MG TABLET PO SCH ×2 (08:28→16:34)
[2016-09-27] MEDS: METFORMIN 500 MG TABLET PO SCH ×2 (08:28→16:34)
[2016-09-27] MEDS: POTASSIUM CHLORIDE 20 MEQ TAB.PRT.SR PO SCH (08:28)
[2016-09-27] MEDS: ASPIRIN 325 MG TABLET PO SCH (08:28)
[2016-09-27] MEDS: PANTOPRAZOLE 40 MG TABLET.DR PO SCH (08:28)
[2016-09-27] MEDS: POLYVINYL ALCOHOL 15 ML BOTTLE EACHEYE SCH ×2 (08:30→16:36)
[2016-09-27] MEDS: TIMOLOL MAL/DORZOLAM HCL OPHTH 10 ML BOTTLE EACHEYE SCH ×2 (08:30→16:36)
[2016-09-27] MEDS: BRIMONIDINE TARTRATE OPHT SOLN 5 ML BOTTLE OP SCH ×2 (08:31→16:36)
--- NOTE | 2016-09-27 09:40 | NUR ---
UR update: STEFANO received a voicemail from Arnold from [employer] [phone] fax [phone] authorizing the patient until 09/30/16 with a review due the same day. Auth # [id number]
[2016-09-27] MEDS: INSULIN REGULAR, HUMAN 100 UNIT/ML 3 ML VIAL SQ PRN (12:26)
[2016-09-27 16:00] VITALS: BP 100/58
[2016-09-27 20:00] VITALS: BP 120/77
[2016-09-27] MEDS: DONEPEZIL 5 MG TABLET PO SCH (22:09)
[2016-09-27] MEDS: LATANOPROST EYE DROP 0.005% 2.5 ML BOTTLE EACHEYE SCH (22:09)
[2016-09-27] MEDS: ATORVASTATIN 10 MG TABLET PO SCH (22:10)
[2016-09-27] MEDS: TEMAZEPAM 7.5 MG CAPSULE PO PRN (22:10)
[2016-09-28 08:00] VITALS: BP 128/67
[2016-09-28] MEDS: METFORMIN 500 MG TABLET PO SCH ×2 (08:15→16:41)
[2016-09-28] MEDS: ASPIRIN 325 MG TABLET PO SCH (08:15)
[2016-09-28] MEDS: QUETIAPINE FUMARATE 25 MG TABLET PO SCH ×2 (08:15→21:29)
[2016-09-28] MEDS: MEMANTINE HCL 5 MG TABLET PO SCH ×2 (08:15→16:41)
[2016-09-28] MEDS: BLOOD SUGAR DIAGNOSTIC 1 EACH STRIP IN SCH ×4 (08:15→21:29)
[2016-09-28] MEDS: DIVALPROEX SODIUM 125 MG CAP.SPRINK PO SCH ×3 (08:15→16:41)
[2016-09-28] MEDS: PANTOPRAZOLE 40 MG TABLET.DR PO SCH (08:15)
[2016-09-28] MEDS: POLYVINYL ALCOHOL 15 ML BOTTLE EACHEYE SCH ×2 (08:18→16:42)
[2016-09-28] MEDS: TIMOLOL MAL/DORZOLAM HCL OPHTH 10 ML BOTTLE EACHEYE SCH ×2 (08:18→16:42)
[2016-09-28] MEDS: BRIMONIDINE TARTRATE OPHT SOLN 5 ML BOTTLE OP SCH ×2 (08:18→16:42)
[2016-09-28] MEDS: POTASSIUM CHLORIDE 20 MEQ TAB.PRT.SR PO SCH (11:48)
[2016-09-28 15:58] VITALS: BP 91/60
[2016-09-28 20:00] VITALS: BP 109/69
[2016-09-28] MEDS: ATORVASTATIN 10 MG TABLET PO SCH (21:29)
[2016-09-28] MEDS: DONEPEZIL 5 MG TABLET PO SCH (21:29)
[2016-09-28] MEDS: LATANOPROST EYE DROP 0.005% 2.5 ML BOTTLE EACHEYE SCH (21:29)
[2016-09-29] MEDS: LORAZEPAM 0.5 MG TABLET PO PRN (03:26)
[2016-09-29 08:00] VITALS: BP 100/58
[2016-09-29] MEDS: BLOOD SUGAR DIAGNOSTIC 1 EACH STRIP IN SCH ×4 (08:19→21:30)
[2016-09-29] MEDS: MEMANTINE HCL 5 MG TABLET PO SCH ×2 (08:19→17:33)
[2016-09-29] MEDS: METFORMIN 500 MG TABLET PO SCH ×2 (08:19→17:33)
[2016-09-29] MEDS: PANTOPRAZOLE 40 MG TABLET.DR PO SCH (08:19)
[2016-09-29] MEDS: ASPIRIN 325 MG TABLET PO SCH (08:20)
[2016-09-29] MEDS: QUETIAPINE FUMARATE 25 MG TABLET PO SCH ×2 (08:20→21:27)
[2016-09-29] MEDS: DIVALPROEX SODIUM 125 MG CAP.SPRINK PO SCH ×3 (08:20→17:33)
[2016-09-29] MEDS: BRIMONIDINE TARTRATE OPHT SOLN 5 ML BOTTLE OP SCH ×2 (08:24→17:35)
[2016-09-29] MEDS: POLYVINYL ALCOHOL 15 ML BOTTLE EACHEYE SCH ×2 (08:24→17:35)
[2016-09-29] MEDS: TIMOLOL MAL/DORZOLAM HCL OPHTH 10 ML BOTTLE EACHEYE SCH ×2 (08:24→17:35)
[2016-09-29] MEDS: POTASSIUM CHLORIDE 20 MEQ TAB.PRT.SR PO SCH (10:57)
--- NOTE | 2016-09-29 11:00 | NUR ---
GPS RN NOTE: PATIENT WAS SEEN AND EXAMINE BY DR JONES NO NEW ORDERS AT THIS TIME CALLED DR TO CLARIFIED ORDER FOR POTASSIUM CHLORIDE [address] TO CONTINUE POTASSIUM DAILY AND LABS TOMORROW MORNING, DR WILL PLACED ORDER FOR LAB, WILL CONTINUE MONITORING FOR SAFETY AND BEHAVIOR Q 15 MIN
[2016-09-29 16:00] VITALS: BP 132/73
[2016-09-29 20:01] VITALS: BP 134/92
[2016-09-29] MEDS: ATORVASTATIN 10 MG TABLET PO SCH (21:28)
[2016-09-29] MEDS: DONEPEZIL 5 MG TABLET PO SCH (21:28)
[2016-09-29] MEDS: LATANOPROST EYE DROP 0.005% 2.5 ML BOTTLE EACHEYE SCH (21:29)
[2016-09-29] MEDS: INSULIN REGULAR, HUMAN 100 UNIT/ML 3 ML VIAL SQ PRN (21:33)
[2016-09-29] MEDS: TEMAZEPAM 7.5 MG CAPSULE PO PRN (22:53)
[2016-09-30] MEDS: BLOOD SUGAR DIAGNOSTIC 1 EACH STRIP IN SCH ×4 (08:11→21:22)
[2016-09-30] MEDS: POTASSIUM CHLORIDE 20 MEQ TAB.PRT.SR PO SCH (09:00)
[2016-09-30] MEDS: POLYVINYL ALCOHOL 15 ML BOTTLE EACHEYE SCH ×2 (09:00→16:54)
[2016-09-30] MEDS: DIVALPROEX SODIUM 125 MG CAP.SPRINK PO SCH ×3 (09:00→16:53)
[2016-09-30] MEDS: TIMOLOL MAL/DORZOLAM HCL OPHTH 10 ML BOTTLE EACHEYE SCH ×2 (09:00→16:54)
[2016-09-30] MEDS: QUETIAPINE FUMARATE 25 MG TABLET PO SCH ×3 (09:00→21:12)
[2016-09-30] MEDS: METFORMIN 500 MG TABLET PO SCH ×2 (09:00→16:53)
[2016-09-30] MEDS: MEMANTINE HCL 5 MG TABLET PO SCH ×2 (09:00→16:53)
[2016-09-30] MEDS: ASPIRIN 325 MG TABLET PO SCH (09:00)
[2016-09-30] MEDS: PANTOPRAZOLE 40 MG TABLET.DR PO SCH (09:00)
[2016-09-30] MEDS: BRIMONIDINE TARTRATE OPHT SOLN 5 ML BOTTLE OP SCH ×2 (09:00→16:54)
--- NOTE | 2016-09-30 10:00 | NUR ---
GPS/RN PATIENT ADAMANTLY REFUSED A.M. MEDICATION X 3, STRIKING OUT AT STAFF WHEN APPROACHED. EXPLAINED RISKS AND BENEFITS HOWEVER, PATIENT IS CONFUSED AND CONTINUES TO REFUSE. WILL CONTINUE TO ENCOURAGE PATIENT TO COMPLY WITH MD REGIMEN.
[2016-09-30 10:58] LABS: CALCIUM, SERUM 8.8 mg/dL (8.5-10.1); CREATININE 0.9 mg/dL (0.6-1.3)
--- NOTE | 2016-09-30 12:20 | NUR ---
UR update: STEFANO faxed updated clinicals to Arnold from [facility] [phone] fax [phone] Auth # [id number] .
[2016-09-30 16:20] VITALS: BP 108/56
[2016-09-30] MEDS: INSULIN REGULAR, HUMAN 100 UNIT/ML 3 ML VIAL SQ PRN ×2 (17:50→21:25)
[2016-09-30 19:39] VITALS: BP_SYST 103; BP_SYST 134; BP_DIAS 59; BP_DIAS 92
[2016-09-30] MEDS: LORAZEPAM 0.5 MG TABLET PO PRN (20:26)
--- NOTE | 2016-09-30 20:40 | NUR ---
PT.IS NOTED ANXIOUS AGITATED IRRITABLE HARD TO FOLLOW DIRECTIONS ATIVAN 0.5 MG PO PRN GIVEN
[2016-09-30] MEDS: LATANOPROST EYE DROP 0.005% 2.5 ML BOTTLE EACHEYE SCH (21:11)
[2016-09-30] MEDS: DONEPEZIL 5 MG TABLET PO SCH (21:11)
[2016-09-30] MEDS: ATORVASTATIN 10 MG TABLET PO SCH (21:12)
[2016-10-01] MEDS: BLOOD SUGAR DIAGNOSTIC 1 EACH STRIP IN SCH ×4 (08:17→22:00)
[2016-10-01] MEDS: ASPIRIN 325 MG TABLET PO SCH (08:17)
[2016-10-01] MEDS: PANTOPRAZOLE 40 MG TABLET.DR PO SCH (08:18)
[2016-10-01] MEDS: MEMANTINE HCL 5 MG TABLET PO SCH ×2 (08:18→16:16)
[2016-10-01] MEDS: DIVALPROEX SODIUM 125 MG CAP.SPRINK PO SCH ×3 (08:18→16:16)
[2016-10-01] MEDS: QUETIAPINE FUMARATE 25 MG TABLET PO SCH ×3 (08:18→21:05)
[2016-10-01] MEDS: METFORMIN 500 MG TABLET PO SCH ×2 (08:18→16:16)
[2016-10-01] MEDS: POTASSIUM CHLORIDE 20 MEQ TAB.PRT.SR PO SCH (08:20)
[2016-10-01 08:24] VITALS: BP 137/86
[2016-10-01] MEDS: TIMOLOL MAL/DORZOLAM HCL OPHTH 10 ML BOTTLE EACHEYE SCH ×2 (08:27→16:18)
[2016-10-01] MEDS: BRIMONIDINE TARTRATE OPHT SOLN 5 ML BOTTLE OP SCH ×2 (08:27→16:18)
[2016-10-01] MEDS: POLYVINYL ALCOHOL 15 ML BOTTLE EACHEYE SCH ×2 (08:27→16:18)
--- NOTE | 2016-10-01 09:30 | NUR ---
UR update: SW received a voicemail from Arnold Ross [employer] [phone] fax [phone] authorizing the patient until October 03, 2016 with a review due the same day. Auth # [id number] .
[2016-10-01] MEDS: INSULIN REGULAR, HUMAN 100 UNIT/ML 3 ML VIAL SQ PRN ×2 (12:05→21:59)
[2016-10-01 16:00] VITALS: BP 119/60
[2016-10-01 19:58] VITALS: BP 129/78
[2016-10-01] MEDS: DONEPEZIL 5 MG TABLET PO SCH (21:05)
[2016-10-01] MEDS: ATORVASTATIN 10 MG TABLET PO SCH (21:05)
[2016-10-01] MEDS: LATANOPROST EYE DROP 0.005% 2.5 ML BOTTLE EACHEYE SCH (21:06)
[2016-10-02 08:27] VITALS: BP 116/58
[2016-10-02] MEDS: BLOOD SUGAR DIAGNOSTIC 1 EACH STRIP IN SCH ×4 (08:33→21:19)
[2016-10-02] MEDS: BRIMONIDINE TARTRATE OPHT SOLN 5 ML BOTTLE OP SCH ×2 (09:28→16:45)
[2016-10-02] MEDS: TIMOLOL MAL/DORZOLAM HCL OPHTH 10 ML BOTTLE EACHEYE SCH ×2 (09:29→16:44)
[2016-10-02] MEDS: PANTOPRAZOLE 40 MG TABLET.DR PO SCH (09:30)
[2016-10-02] MEDS: METFORMIN 500 MG TABLET PO SCH ×2 (09:30→16:44)
[2016-10-02] MEDS: DIVALPROEX SODIUM 125 MG CAP.SPRINK PO SCH ×3 (09:30→16:44)
[2016-10-02] MEDS: QUETIAPINE FUMARATE 25 MG TABLET PO SCH ×3 (09:30→21:18)
[2016-10-02] MEDS: ASPIRIN 325 MG TABLET PO SCH (09:30)
[2016-10-02] MEDS: MEMANTINE HCL 5 MG TABLET PO SCH ×2 (09:30→16:44)
[2016-10-02] MEDS: POLYVINYL ALCOHOL 15 ML BOTTLE EACHEYE SCH ×2 (09:30→16:44)
--- NOTE | 2016-10-02 10:34 | NUR ---
STEFANO spoke with Leonarda from [facility] [address] [place] [address] and notified her of pt's possible discharge Friday and asked if they need to reassess the patient. Leonarda will speak with medical administrator and call back with a response.
[2016-10-02] MEDS: INSULIN REGULAR, HUMAN 100 UNIT/ML 3 ML VIAL SQ PRN ×2 (12:05→21:33)
--- NOTE | 2016-10-02 14:33 | NUR ---
STEFANO spoke with Paola from [facility] [address] [place] [id number] and she states that they cannot admit the patient or Friday and has to wait until Friday as they need time to assess the patient tomorrow but do not do admission on Fridays. STEFANO notified
[2016-10-02 15:57] VITALS: BP 125/60
--- NOTE | 2016-10-02 16:52 | NUR ---
CRYPTOGRAPHER PT BS 133 WILL NOT COVER PT DOES NOT EAT AT TIMES
--- NOTE | 2016-10-02 19:30 | NUR ---
GPS RN INITIAL NOTE RECEIVED REPORT FROM [facility]. PT IN ACTIVITY ROOM. PT IS UP IN CHAIR. A/O X1 TO NAME. PT IS SMILING, NO COMPLAINTS. WILL CONTINUE TO MONITOR.
[2016-10-02 20:27] VITALS: BP 106/60
[2016-10-02] MEDS: LORAZEPAM 0.5 MG TABLET PO PRN (21:18)
[2016-10-02] MEDS: ATORVASTATIN 10 MG TABLET PO SCH (21:19)
[2016-10-02] MEDS: DONEPEZIL 5 MG TABLET PO SCH (21:19)
[2016-10-02] MEDS: LATANOPROST EYE DROP 0.005% 2.5 ML BOTTLE EACHEYE SCH (21:20)
[2016-10-03 07:02] LABS: BASOPHILS % (AUTO) 0.5 % (0.0-2.0); EOSINOPHILS # (AUTO) 0.1 /CMM (0.0-0.7); HEMATOCRIT 42 % (39-51); HEMOGLOBIN 13.3 g/dL (13.5-17.5); LYMPHOCYTES # (AUTO) 2.4 /CMM (0.8-4.8); LYMPHOCYTES % (AUTO) 32.4 % (20.0-44.0); MEAN CORPUSCULAR HEMOGLOBIN 30 PG (26.0-33.0); MEAN CORPUSCULAR HGB CONC 32 g/dl (31.0-36.0); MEAN CORPUSCULAR VOLUME 93 fL (80-96); MONOCYTES # (AUTO) 0.7 /CMM (0.1-1.30); NEUTROPHILS # (AUTO) 4.2 /CMM (1.8-8.9); NEUTROPHILS % (AUTO) 56.1 % (43.0-81.0); PLATELET COUNT (AUTO) 166 /CMM (150-450); RDW COEFFICIENT OF VARIATION 13.8 (11.5-15.0); RED BLOOD CELL COUNT(AUTO) 4.49 MIL/uL (4.5-6.0); WHITE BLOOD COUNT (AUTO) 7.4 K/uL (4.3-11.0)
[2016-10-03 07:14] LABS: CALCIUM, SERUM 8.8 mg/dL (8.5-10.1); CREATININE 0.8 mg/dL (0.6-1.3); MAGNESIUM 1.5 mg/dL (1.8-2.4); PHOSPHORUS 3.4 mg/dL (2.5-4.9); POTASSIUM 4.5 mmol/L (3.5-5.1)
[2016-10-03 08:00] VITALS: BP 147/74
[2016-10-03] MEDS: BLOOD SUGAR DIAGNOSTIC 1 EACH STRIP IN SCH ×4 (08:10→22:03)
[2016-10-03] MEDS: DIVALPROEX SODIUM 125 MG CAP.SPRINK PO SCH ×3 (08:12→16:04)
[2016-10-03] MEDS: METFORMIN 500 MG TABLET PO SCH ×2 (08:12→16:04)
[2016-10-03] MEDS: QUETIAPINE FUMARATE 25 MG TABLET PO SCH ×3 (08:12→21:03)
[2016-10-03] MEDS: PANTOPRAZOLE 40 MG TABLET.DR PO SCH (08:12)
[2016-10-03] MEDS: ASPIRIN 325 MG TABLET PO SCH (08:13)
[2016-10-03] MEDS: MEMANTINE HCL 5 MG TABLET PO SCH ×2 (08:13→16:04)
[2016-10-03] MEDS: TIMOLOL MAL/DORZOLAM HCL OPHTH 10 ML BOTTLE EACHEYE SCH ×2 (08:19→17:24)
[2016-10-03] MEDS: BRIMONIDINE TARTRATE OPHT SOLN 5 ML BOTTLE OP SCH ×2 (08:19→17:23)
[2016-10-03] MEDS: POLYVINYL ALCOHOL 15 ML BOTTLE EACHEYE SCH ×2 (08:20→17:23)
[2016-10-03] MEDS: BOOST GLUCOSE CONTROL VANILLA 237 ML BOX PO SCH ×2 (08:56→17:24)
[2016-10-03] MEDS ORDERED: MAGNESIUM OXIDE 400 MG TABLET PO ONE (12:00)
[2016-10-03 16:00] VITALS: BP 130/76
[2016-10-03] MEDS: INSULIN REGULAR, HUMAN 100 UNIT/ML 3 ML VIAL SQ PRN ×2 (17:27→22:08)
[2016-10-03 20:00] VITALS: BP 152/50
[2016-10-03] MEDS: DONEPEZIL 5 MG TABLET PO SCH (22:03)
[2016-10-03] MEDS: ATORVASTATIN 10 MG TABLET PO SCH (22:03)
[2016-10-03] MEDS: LATANOPROST EYE DROP 0.005% 2.5 ML BOTTLE EACHEYE SCH (22:03)
[2016-10-03] MEDS: TEMAZEPAM 7.5 MG CAPSULE PO PRN (22:04)
[2016-10-04 07:54] VITALS: BP 103/60
[2016-10-04 08:00] VITALS: BP 103/60
[2016-10-04] MEDS: QUETIAPINE FUMARATE 25 MG TABLET PO SCH ×3 (08:54→20:16)
[2016-10-04] MEDS: METFORMIN 500 MG TABLET PO SCH ×2 (08:54→16:58)
[2016-10-04] MEDS: ASPIRIN 325 MG TABLET PO SCH (08:54)
[2016-10-04] MEDS: BOOST GLUCOSE CONTROL VANILLA 237 ML BOX PO SCH ×2 (08:54→16:58)
[2016-10-04] MEDS: PANTOPRAZOLE 40 MG TABLET.DR PO SCH (08:54)
[2016-10-04] MEDS: BLOOD SUGAR DIAGNOSTIC 1 EACH STRIP IN SCH ×4 (08:54→21:49)
[2016-10-04] MEDS: MEMANTINE HCL 5 MG TABLET PO SCH ×2 (08:54→16:58)
[2016-10-04] MEDS: DIVALPROEX SODIUM 125 MG CAP.SPRINK PO SCH ×3 (08:54→16:58)
[2016-10-04] MEDS: TIMOLOL MAL/DORZOLAM HCL OPHTH 10 ML BOTTLE EACHEYE SCH ×2 (08:55→16:59)
[2016-10-04] MEDS: BRIMONIDINE TARTRATE OPHT SOLN 5 ML BOTTLE OP SCH ×2 (08:55→16:59)
[2016-10-04] MEDS: POLYVINYL ALCOHOL 15 ML BOTTLE EACHEYE SCH ×2 (08:55→16:59)
[2016-10-04] MEDS: INSULIN REGULAR, HUMAN 100 UNIT/ML 3 ML VIAL SQ PRN (12:30)
--- NOTE | 2016-10-04 13:36 | NUR ---
STEFANO called [facility] [address] [place] [address] as pt. was never assessed on as arranged. Paola and Ousmane (admission coordinator and historical records administrator) both were not in the building. The proposal analyst attempted to text message to get an update, but no response at this time. Will follow up and update later. Addendum: 10/04/16 at 1344 by LINDSAY AGARWAL Per Ousmane, pt. can be transferred back to the facility on Friday.
--- NOTE | 2016-10-04 13:43 | NUR ---
UR update: SW received a voicemail from Arnold Balderas [employer] [phone] fax [phone] authorizing the patient until October 07, 2016 with a review due the same day. Auth # [id number].
[2016-10-04 15:58] VITALS: BP 112/56
[2016-10-04 20:00] VITALS: BP 119/67
[2016-10-04] MEDS: ATORVASTATIN 10 MG TABLET PO SCH (21:25)
[2016-10-04] MEDS: DONEPEZIL 5 MG TABLET PO SCH (21:25)
[2016-10-04] MEDS: LATANOPROST EYE DROP 0.005% 2.5 ML BOTTLE EACHEYE SCH (21:54)
[2016-10-04] MEDS: TEMAZEPAM 7.5 MG CAPSULE PO PRN (22:20)
[2016-10-05 07:59] VITALS: BP 106/51
[2016-10-05] MEDS: BLOOD SUGAR DIAGNOSTIC 1 EACH STRIP IN SCH ×4 (09:23→21:47)
[2016-10-05] MEDS: MEMANTINE HCL 5 MG TABLET PO SCH ×2 (09:24→17:43)
[2016-10-05] MEDS: METFORMIN 500 MG TABLET PO SCH ×2 (09:24→17:43)
[2016-10-05] MEDS: PANTOPRAZOLE 40 MG TABLET.DR PO SCH (09:24)
[2016-10-05] MEDS: QUETIAPINE FUMARATE 25 MG TABLET PO SCH ×3 (09:24→20:18)
[2016-10-05] MEDS: POLYVINYL ALCOHOL 15 ML BOTTLE EACHEYE SCH ×2 (09:24→17:44)
[2016-10-05] MEDS: ASPIRIN 325 MG TABLET PO SCH (09:24)
[2016-10-05] MEDS: DIVALPROEX SODIUM 125 MG CAP.SPRINK PO SCH ×3 (09:24→17:43)
[2016-10-05] MEDS: BRIMONIDINE TARTRATE OPHT SOLN 5 ML BOTTLE OP SCH ×2 (09:24→17:44)
[2016-10-05] MEDS: BOOST GLUCOSE CONTROL VANILLA 237 ML BOX PO SCH ×2 (09:25→17:44)
[2016-10-05] MEDS: TIMOLOL MAL/DORZOLAM HCL OPHTH 10 ML BOTTLE EACHEYE SCH ×2 (09:25→17:44)
[2016-10-05] MEDS: INSULIN REGULAR, HUMAN 100 UNIT/ML 3 ML VIAL SQ PRN (12:31)
[2016-10-05 16:15] VITALS: BP 123/65
[2016-10-05 20:00] VITALS: BP 111/58
[2016-10-05] MEDS: ATORVASTATIN 10 MG TABLET PO SCH (21:06)
[2016-10-05] MEDS: DONEPEZIL 5 MG TABLET PO SCH (21:07)
[2016-10-05] MEDS: LATANOPROST EYE DROP 0.005% 2.5 ML BOTTLE EACHEYE SCH (21:47)
[2016-10-05] MEDS: TEMAZEPAM 7.5 MG CAPSULE PO PRN (22:06)
[2016-10-05] MEDS: LORAZEPAM 0.5 MG TABLET PO PRN (23:05)
[2016-10-06 08:00] VITALS: BP 130/62
[2016-10-06] MEDS: PANTOPRAZOLE 40 MG TABLET.DR PO SCH (08:33)
[2016-10-06] MEDS: ASPIRIN 325 MG TABLET PO SCH (08:33)
[2016-10-06] MEDS: BOOST GLUCOSE CONTROL VANILLA 237 ML BOX PO SCH ×2 (08:33→17:01)
[2016-10-06] MEDS: BLOOD SUGAR DIAGNOSTIC 1 EACH STRIP IN SCH ×4 (08:33→22:12)
[2016-10-06] MEDS: DIVALPROEX SODIUM 125 MG CAP.SPRINK PO SCH ×3 (08:33→17:00)
[2016-10-06] MEDS: METFORMIN 500 MG TABLET PO SCH ×2 (08:33→17:01)
[2016-10-06] MEDS: MEMANTINE HCL 5 MG TABLET PO SCH ×2 (08:34→17:01)
[2016-10-06] MEDS: BRIMONIDINE TARTRATE OPHT SOLN 5 ML BOTTLE OP SCH ×2 (08:34→17:01)
[2016-10-06] MEDS: QUETIAPINE FUMARATE 25 MG TABLET PO SCH ×3 (08:34→20:55)
[2016-10-06] MEDS: POLYVINYL ALCOHOL 15 ML BOTTLE EACHEYE SCH ×2 (08:35→17:02)
[2016-10-06] MEDS: Z GUARD REMEDY 2 OZ OINT TP SCH (08:35)
[2016-10-06] MEDS: TIMOLOL MAL/DORZOLAM HCL OPHTH 10 ML BOTTLE EACHEYE SCH ×2 (08:36→17:01)
[2016-10-06] MEDS: INSULIN REGULAR, HUMAN 100 UNIT/ML 3 ML VIAL SQ PRN (12:34)
[2016-10-06 16:00] VITALS: BP 108/59
[2016-10-06 20:06] VITALS: BP 116/67
[2016-10-06] MEDS: ATORVASTATIN 10 MG TABLET PO SCH (21:28)
[2016-10-06] MEDS: DONEPEZIL 5 MG TABLET PO SCH (21:28)
[2016-10-06] MEDS: LATANOPROST EYE DROP 0.005% 2.5 ML BOTTLE EACHEYE SCH (21:29)
[2016-10-07 07:25] LABS: BASOPHILS % (AUTO) 0.5 % (0.0-2.0); EOSINOPHILS # (AUTO) 0.1 /CMM (0.0-0.7); EOSINOPHILS % (AUTO) 1.8 % (0.0-6.0); HEMATOCRIT 37 % (39-51); HEMOGLOBIN 12.2 g/dL (13.5-17.5); LYMPHOCYTES # (AUTO) 1.9 /CMM (0.8-4.8); LYMPHOCYTES % (AUTO) 31.6 % (20.0-44.0); MEAN CORPUSCULAR HEMOGLOBIN 30 PG (26.0-33.0); MEAN CORPUSCULAR HGB CONC 33 g/dl (31.0-36.0); MEAN CORPUSCULAR VOLUME 91 fL (80-96); MONOCYTES # (AUTO) 0.5 /CMM (0.1-1.30); MONOCYTES % (AUTO) 9.2 % (2.0-12.0); NEUTROPHILS # (AUTO) 3.4 /CMM (1.8-8.9); NEUTROPHILS % (AUTO) 56.9 % (43.0-81.0); PLATELET COUNT (AUTO) 188 /CMM (150-450); RED BLOOD CELL COUNT(AUTO) 4.12 MIL/uL (4.5-6.0); WHITE BLOOD COUNT (AUTO) 5.9 K/uL (4.3-11.0)
--- NOTE | 2016-10-07 07:33 | NUR ---
QVP-[id number]: BLOOD SUGAR IS 100 MG/DL AND NO INSULIN REQUIRED AT THIS TIME
[2016-10-07 07:36] LABS: ALBUMIN 2.9 g/dL (3.4-5.0); BILIRUBIN,TOTAL 0.7 mg/dL (0.2-1.0); CALCIUM, SERUM 8.6 mg/dL (8.5-10.1); CREATININE 0.9 mg/dL (0.6-1.3); POTASSIUM 4.1 mmol/L (3.5-5.1); TOTAL PROTEIN, SERUM 6.8 g/dL (6.4-8.2)
[2016-10-07] MEDS: BLOOD SUGAR DIAGNOSTIC 1 EACH STRIP IN SCH ×4 (07:52→21:27)
[2016-10-07] MEDS: BOOST GLUCOSE CONTROL VANILLA 237 ML BOX PO SCH ×2 (07:53→16:09)
[2016-10-07 08:00] VITALS: BP 108/59
[2016-10-07] MEDS: ASPIRIN 325 MG TABLET PO SCH (08:00)
[2016-10-07] MEDS: BRIMONIDINE TARTRATE OPHT SOLN 5 ML BOTTLE OP SCH ×2 (08:00→16:09)
[2016-10-07] MEDS: POLYVINYL ALCOHOL 15 ML BOTTLE EACHEYE SCH ×2 (08:00→16:09)
[2016-10-07] MEDS: TIMOLOL MAL/DORZOLAM HCL OPHTH 10 ML BOTTLE EACHEYE SCH ×2 (08:00→16:09)
[2016-10-07] MEDS: METFORMIN 500 MG TABLET PO SCH ×2 (08:01→17:00)
[2016-10-07] MEDS: MEMANTINE HCL 5 MG TABLET PO SCH ×2 (08:01→16:10)
[2016-10-07] MEDS: PANTOPRAZOLE 40 MG TABLET.DR PO SCH (08:01)
[2016-10-07] MEDS: QUETIAPINE FUMARATE 25 MG TABLET PO SCH ×3 (08:01→21:27)
[2016-10-07] MEDS: DIVALPROEX SODIUM 125 MG CAP.SPRINK PO SCH ×3 (08:01→16:10)
[2016-10-07] MEDS: Z GUARD REMEDY 2 OZ OINT TP SCH (08:01)
--- NOTE | 2016-10-07 08:30 | NUR ---
[id number]-[id number]: NOTIFIED AIR CHIPPER ELIZA REGARDING PT'S LAB RESULTS FOR TODAY: RBC= 4.12, HGB= 12.2, HCT= 37, BUN= 21, AST= 13, TOLTAL PROTEIN= 2.9, VALPROIC ACID= 44. NO NEW ORDERS GIVEN AT THIS TIME
--- NOTE | 2016-10-07 08:40 | NUR ---
[id number]: NOTIFIED DR. CALDWELL ABOUT VALPROIC ACID FOR TODAY= 44. NO NEW ORDERS GIVEN AT THIS TIME
--- NOTE | 2016-10-07 11:23 | NUR ---
STEFANO left a voicemail for Arnold from [employer] [phone] fax [phone] to get authorization for transportation. will follow up
--- NOTE | 2016-10-07 11:24 | NUR ---
Discharge note: Patient will discharge back to [facility] [address] [facility] [id number] STEFANO left a voicemail for pt's (Matilda Irizarryo: [phone]/ cell: [phone]) to discuss transportation option. Pt. is calm and cooperative at this time, denies suicidal/homicidal ideations. Pt.'s and facility are notified of pt's discharge today. Discharge paperwork has been signed and discharge instructions will be provided. Pt. will follow up with [facility] Brooks [address] [address] [phone] Wilmer Boyer [phone]. Addendum: 10/07/16 at 1725 by LINDSAY AGARWAL discharge cancelled as pt's insurance was unable to approve transportation today and needed time to review. STEFANO called [phone] and spoke with Corinna (who provided another direct number [phone] )and provided all necessary information to open up a case for pre-authorization for pt's transportation. She requested clinicals to be faxed to [phone] in order for their nurse to review and approve transportation. STEFANO faxed and is waiting for a response.
--- NOTE | 2016-10-07 11:57 | NUR ---
[id number]: BLOOD SUGAR IS 127 MG/DL AND NO INSULIN REQUIRED AT THIS TIME.
[2016-10-07 16:00] VITALS: BP 102/57
--- NOTE | 2016-10-07 16:27 | NUR ---
[id number]: BLOOD SUGAR IS 122 MG/DL AND NO INSULIN REQUIRED AT THIS TIME.
--- NOTE | 2016-10-07 17:25 | NUR ---
UR update: SW received a voicemail from Arnold Ross [employer] [phone] fax [phone] authorizing the patient until October 08, 2016 with a review due the same day while trying to arrange for transportation. Auth # [id number].
--- NOTE | 2016-10-07 19:30 | NUR ---
GPS RN NOTE, RECEIVED PATIENT AWAKE AND IN BED, NO S/S OR COMPLAINTS OF PAIN AT THIS TIME. PATIENT IS DISPLAYING NO S/S OF APPARENT DISTRESS AT THIS TIME. PATIENT BREATHING IS UNLABORED WITH EQUAL RISE AND FALL OF THE CHEST. PATIENT IS ALERT AND ORIENTED X 1 ON ROOM AIR WITH A SPO2 94%. PATIENT COMPLIANT WITH MEDICATIONS, DEPRESSED, COOPERATIVE, CONFUSED AT TIMES, AND NEEDS REORIENTATION. PATIENT DENIES SUICIDE AND HOMICIDAL IDEATIONS AT THIS TIME. PATIENT ASSISTED WITH TURNING AND REPOSITIONING Q2HR AND PRN FOR COMFORT AND CIRCULATION. PATIENT HAS NO NEEDS AT THIS TIME. PATIENT EDUCATED ON THE USE OF THE CALL RANGEL. PATIENT BED SIDE RAILS UP X2 FOR SAFETY, BED IS LOCKED AND LOW WILL CONTINUE TO MONITOR AND MAINTAIN SAFETY.
[2016-10-07 19:45] VITALS: BP 104/51
[2016-10-07] MEDS: DONEPEZIL 5 MG TABLET PO SCH (21:26)
[2016-10-07] MEDS: ATORVASTATIN 10 MG TABLET PO SCH (21:27)
[2016-10-07] MEDS: LATANOPROST EYE DROP 0.005% 2.5 ML BOTTLE EACHEYE SCH (21:27)
--- NOTE | 2016-10-07 21:27 | NUR ---
GPS RN NOTE, PERFORMED ACCU CHECK ON PATIENT WITH A BLOOD SUGAR RESULT OF 127. NO INSULIN COVERAGE GIVEN PER SLIDING SCALE. WILL CONTINUE TO MONITOR THIS PATIENT.
--- NOTE | 2016-10-08 07:37 | NUR ---
[id number]: BLOOD SUGAR IS 105 MG/DL AND NO INSULIN REQUIRED AT THIS TIME
[2016-10-08] MEDS: BLOOD SUGAR DIAGNOSTIC 1 EACH STRIP IN SCH ×4 (07:55→21:51)
[2016-10-08] MEDS: BOOST GLUCOSE CONTROL VANILLA 237 ML BOX PO SCH ×2 (07:56→16:29)
[2016-10-08] MEDS: POLYVINYL ALCOHOL 15 ML BOTTLE EACHEYE SCH ×2 (08:00→16:29)
[2016-10-08] MEDS: MEMANTINE HCL 5 MG TABLET PO SCH ×2 (08:01→16:27)
[2016-10-08] MEDS: DIVALPROEX SODIUM 125 MG CAP.SPRINK PO SCH ×3 (08:01→16:27)
[2016-10-08] MEDS: BRIMONIDINE TARTRATE OPHT SOLN 5 ML BOTTLE OP SCH ×2 (08:01→16:29)
[2016-10-08] MEDS: TIMOLOL MAL/DORZOLAM HCL OPHTH 10 ML BOTTLE EACHEYE SCH ×2 (08:01→16:28)
[2016-10-08] MEDS: METFORMIN 500 MG TABLET PO SCH ×2 (08:01→16:28)
[2016-10-08] MEDS: ASPIRIN 325 MG TABLET PO SCH (08:01)
[2016-10-08] MEDS: PANTOPRAZOLE 40 MG TABLET.DR PO SCH (08:02)
[2016-10-08] MEDS: QUETIAPINE FUMARATE 25 MG TABLET PO SCH ×3 (08:02→21:16)
[2016-10-08] MEDS: Z GUARD REMEDY 2 OZ OINT TP SCH (08:02)
[2016-10-08 08:07] VITALS: BP 137/69
[2016-10-08] MEDS: INSULIN REGULAR, HUMAN 100 UNIT/ML 3 ML VIAL SQ PRN ×2 (12:14→22:05)
--- NOTE | 2016-10-08 12:14 | NUR ---
[id number]: BLOOD SUGAR IS 171 MG/DL AND GAVE 3 UNITS
--- NOTE | 2016-10-08 12:21 | NUR ---
STEFANO called [phone] and spoke with Corinna from the authorization department about pt's transportation request. Per Corinna, it takes up to 14 days for the regular request ( which despite of how much I emphasized on it's urgency of it was still put regular). I asked her to change it to urgent, and first, she said the case does not qualify as urgent as pt's life is not in danger, but when STEFANO expressed her disappointment, Corinna changed the case to urgent. Still, it will take up to 72 hours to process.
--- NOTE | 2016-10-08 12:23 | NUR ---
UR update: STEFANO fowler a voicemail for Arnold Ross [employer] [phone] fax [phone] notifying him of the update. Auth # [id number]. Addendum: 10/08/16 at 1323 by LINDSAY AGARWAL Arnold called back authorizing pt. until 10/10. Will follow up
[2016-10-08 16:00] VITALS: BP 104/62
--- NOTE | 2016-10-08 16:00 | NUR ---
[id number]: BLOOD SUGAR IS 113 MG/DL AND NO INSULIN COVERAGE REQUIRED AT THIS TIME
[2016-10-08 20:08] VITALS: BP 132/72
[2016-10-08] MEDS: DONEPEZIL 5 MG TABLET PO SCH (21:16)
[2016-10-08] MEDS: ATORVASTATIN 10 MG TABLET PO SCH (21:16)
[2016-10-08] MEDS: LATANOPROST EYE DROP 0.005% 2.5 ML BOTTLE EACHEYE SCH (21:18)
[2016-10-09] MEDS: TEMAZEPAM 7.5 MG CAPSULE PO PRN (00:17)
--- NOTE | 2016-10-09 07:30 | NUR ---
[id number]: BLOOD SUGAR IS 79 MG/DL AND NO INSULIN COVERAGE REQUIRED AT THIS TIME.
[2016-10-09 08:00] VITALS: BP 129/70
[2016-10-09] MEDS: BLOOD SUGAR DIAGNOSTIC 1 EACH STRIP IN SCH ×2 (08:07→12:14)
[2016-10-09] MEDS: METFORMIN 500 MG TABLET PO SCH (08:08)
[2016-10-09] MEDS: BOOST GLUCOSE CONTROL VANILLA 237 ML BOX PO SCH (08:08)
[2016-10-09] MEDS: Z GUARD REMEDY 2 OZ OINT TP SCH (08:08)
[2016-10-09] MEDS: MEMANTINE HCL 5 MG TABLET PO SCH (08:09)
[2016-10-09] MEDS: ASPIRIN 325 MG TABLET PO SCH (08:09)
[2016-10-09] MEDS: PANTOPRAZOLE 40 MG TABLET.DR PO SCH (08:09)
[2016-10-09] MEDS: DIVALPROEX SODIUM 125 MG CAP.SPRINK PO SCH ×2 (08:09→12:27)
[2016-10-09] MEDS: QUETIAPINE FUMARATE 25 MG TABLET PO SCH (08:10)
[2016-10-09] MEDS: POLYVINYL ALCOHOL 15 ML BOTTLE EACHEYE SCH (08:11)
[2016-10-09] MEDS: TIMOLOL MAL/DORZOLAM HCL OPHTH 10 ML BOTTLE EACHEYE SCH (08:11)
[2016-10-09] MEDS: BRIMONIDINE TARTRATE OPHT SOLN 5 ML BOTTLE OP SCH (08:11)
[2016-10-09] MEDS: INSULIN REGULAR, HUMAN 100 UNIT/ML 3 ML VIAL SQ PRN (12:15)
--- NOTE | 2016-10-09 12:15 | NUR ---
[id number]; BLOOD SUGAR IS 141 MG/DL AND GAVE 2 UNITS OF REGULAR INSULIN.
--- NOTE | 2016-10-09 13:45 | NUR ---
JNK-AQ-[id number]: PT IS 85 YEARS OLD MALE DISCHARGE TO [facility] AT [address] [id number], IN STABLE CONDITION. COMPLAINT WITH MEDICATIONS, COOPERATIVE WITH TREATMENT PLANS. PT DENIES SI/HI. BEHAVIOR IMPROVED, PSYCHIATRIC TX PLANS MET, MEDICAL TX PLANS DEFERRED FOR CONTINUAL MONITORING. EDUCATED PT ABOUT AFTER CARE PLAN AND COPY PROVIDED. RETURNED PERSONAL BELONGINGS TO PT. MEDICATIONS RECONCILED WITH DR. CALDWELL AND DR. BAUER. PT PT UNABLE TO SIGN DISCHARGE PAPERWORK. SKIN ASSESSMENT DONE. PT LEFT VIA [facility].
--- NOTE | 2016-10-09 17:36 | NUR ---
Discharge note: Patient will discharge back to [facility] [address] [facility] [id number] SW left a voicemail for pt's (Matilda King: [phone]/ cell: [phone]) to discuss transportation option. Pt. is calm and cooperative at this time, denies suicidal/homicidal ideations. Pt.'s and facility are notified of pt's discharge today. Discharge paperwork has been signed and discharge instructions will be provided. Pt. will follow up with [facility] [address] Brooks [address] [address] [phone] Wilmer Boyer [phone]
--- NOTE | 2016-10-09 17:37 | NUR ---
UR update: faxed discharge information to Arnold from [facility] [phone] fax [phone] Auth # [id number] .
== END 2016-10-09 13:45 | DRG 885 ==
LOC: ER 02:28 → GPS 07:50
PROVIDERS: ADMIT Psychiatry & Neurology Psychiatry; ATTEND Internal Medicine
DX: F29 Unspecified psychosis not due to a substance or known physiological condition (principal); E11.65 Type 2 diabetes mellitus with hyperglycemia; D68.59 Other primary thrombophilia; F03.91 Unspecified dementia, unspecified severity, with behavioral disturbance; E78.5 Hyperlipidemia, unspecified; F32.9 Major depressive disorder, single episode, unspecified; E11.9 Type 2 diabetes mellitus without complications; I10 Essential (primary) hypertension; I25.10 Atherosclerotic heart disease of native coronary artery without angina pectoris; I48.91 Unspecified atrial fibrillation; K21.9 Gastro-esophageal reflux disease without esophagitis; H40.9 Unspecified glaucoma; Z79.84 Long term (current) use of oral hypoglycemic drugs; Z79.899 Other long term (current) drug therapy
CPT/HCPCS: 36415; 80048-TC; 80053-TC; 80061-TC; 80076-TC; 80164-TC; 80305; 81000-TC; 82962-TC; 83735-TC; 84100-TC; 85025-TC; 85610-TC; 87081-TC; 97001-TC; 97110-TC; 97116-TC; 97530-TC; A4606; G0480; G6039-TC; J1815; Z7610

== ENCOUNTER 2016-10-24 15:18 | Inpatient (IN) | payer BC, OTHER ==
[~2016-10-24] VITALS: Ht 182.9 cm; Wt 64.4 kg
[~2016-10-24 15:18] MED LIST changes: +ASPI325T2 PO; +DEXT1DRO3 EACHEYE; -DEXT1DRO3 OP; -DIVA250T6 PO; -QUET25TA PO; -WARF2TAB6 PO
--- NOTE | 2016-10-24 15:18 | NUR ---
BIBRA FROM SNF DUE TO ALTERED MENTAL STATUS THAN USUAL. PATIENT IS ALERT, HOWEVER NON VERBAL. IN NO APPARENT DISTRESS, RESPIRATION EVEN AND UNLABORED,. SKIN IS WARM TO TOUCH AND NON DIAPHORETIC. AFEBRILE.GOWNED PT AND PLACED ON TELE MONITOR., PENDING MD EVALUATION
--- NOTE | 2016-10-24 15:46 | NUR ---
IV ACCESSED TO LAC 18.. BLOOD SAMPLE SENT TO LAB
[2016-10-24 15:50] LABS: BASOPHILS # (AUTO) 0.1 /CMM (0.0-0.2); BASOPHILS % (AUTO) 1.7 % (0.0-2.0); EOSINOPHILS # (AUTO) 0.1 /CMM (0.0-0.7); EOSINOPHILS % (AUTO) 2.4 % (0.0-6.0); HEMATOCRIT 38 % (39-51); HEMOGLOBIN 12.4 g/dL (13.5-17.5); LYMPHOCYTES # (AUTO) 1.8 /CMM (0.8-4.8); LYMPHOCYTES % (AUTO) 29.6 % (20.0-44.0); MEAN CORPUSCULAR HEMOGLOBIN 30 PG (26.0-33.0); MEAN CORPUSCULAR HGB CONC 33 g/dl (31.0-36.0); MEAN CORPUSCULAR VOLUME 90 fL (80-96); MONOCYTES # (AUTO) 0.5 /CMM (0.1-1.30); MONOCYTES % (AUTO) 8.7 % (2.0-12.0); NEUTROPHILS # (AUTO) 3.5 /CMM (1.8-8.9); NEUTROPHILS % (AUTO) 57.6 % (43.0-81.0); PLATELET COUNT (AUTO) 187 /CMM (150-450); RDW COEFFICIENT OF VARIATION 12.4 (11.5-15.0); RED BLOOD CELL COUNT(AUTO) 4.19 MIL/uL (4.5-6.0)
--- NOTE | 2016-10-24 15:55 | NUR ---
URINE SAMPLE SENT TO LAB
--- NOTE | 2016-10-24 15:56 | NUR ---
PT TAKENT TO CT
[2016-10-24 16:03] LABS: INR 1.03 (0.87-1.13); PROTHROMBIN TIME 10.7 SECS (9.5-12.7)
[2016-10-24 16:03] LABS: BILIRUBIN,URINE MODERATE (NEGATIVE); BLOOD, URINE Negative Ery/uL (NEGATIVE); COLOR,URINE Yellow (YELLOW); KETONES,URINE 15 (NEGATIVE); LEUKOCYTE ESTERASE ,URINE Trace (NEGATIVE); NITRITE, URINE Negative (NEGATIVE); PH,URINE 5.5 (5.0-8.0); PROTEIN,URINE Trace mg/dl (NEGATIVE); UGLUCOSE Negative (NEGATIVE)
[2016-10-24 16:04] LABS: APPEARANCE,URINE Hazy (CLEAR)
[2016-10-24 16:10] LABS: BACTERIA,URINE Rare /HPF (None Seen); MUCUS,URINE Rare /LPF (None Seen); SQUAMOUS EPITHELIAL CELL,UR Few /HPF (None Seen); WBC,URINE 20-40 /HPF (0-3)
[2016-10-24] MEDS ORDERED: DIVA250T6 PO (16:15)
[2016-10-24] MEDS ORDERED: ATOR10TA PO (16:15)
[2016-10-24] MEDS ORDERED: RISP0.2515 PO (16:15)
[2016-10-24] MEDS ORDERED: QUET25TA PO (16:15)
[2016-10-24] MEDS ORDERED: ASPI-869 PO (16:15)
[2016-10-24] MEDS ORDERED: LORA2ORA SL (16:17)
[2016-10-24 16:36] LABS: CALCIUM, SERUM 8.7 mg/dL (8.5-10.1); CARBON DIOXIDE 30 mmol/L (21-32); CHLORIDE 107 mmol/L (98-107); CREATININE 0.7 mg/dL (0.6-1.3); GLUCOSE 127 mg/dL (74-106); SODIUM SERUM 143 mmol/L (136-145); UREA NITROGEN, BLOOD 23 mg/dL (7-18)
[2016-10-24 16:41] LABS: ALANINE AMINOTRANSFERASE 8 U/L (12-78); ALKALINE PHOSPHATASE 105 U/L (46-116); ASPARTATE AMINOTRANSFERASE 12 U/L (15-37); BILIRUBIN,DIRECT 0.2 mg/dL (0.0-0.2); SERUM AMMONIA 16 umol/L (11-32); TOTAL PROTEIN, SERUM 6.6 g/dL (6.4-8.2)
[2016-10-24 16:44] LABS: TROPONIN I < 0.017 ng/mL (0.00-0.056)
--- NOTE | 2016-10-24 17:23 | NUR ---
[facility] PAGED, DR DAMON DELIVERY ROUTE DRIVER
--- NOTE | 2016-10-24 17:24 | NUR ---
CALLED NURSING SUP. FOR TELE BED
[2016-10-24] MEDS ORDERED: IV NS 0.9% 500 ML BAG IV ONE (17:30)
[2016-10-24] MEDS ORDERED: CEFTRIAXONE 1 G in IV D5W 50 ML IV ONE (17:30)
[2016-10-24] MEDS ORDERED: CEPHALEXIN MONOHYDRATE 500 MG CAPSULE PO ONE (17:30)
[2016-10-24] MEDS ORDERED: IV NS 0.9% 500 ML IV ONE (17:31)
[2016-10-24] MEDS ORDERED: CEFTRIAXONE 1GM BAG (ER ONLY) 50 ML IV ONE (17:31)
[2016-10-24] MEDS ORDERED: IV SET PRIMARY PUMP SET 1 EA INFUS.SET MC ONE ×2 (17:32→20:26)
--- NOTE | 2016-10-24 17:51 | NUR ---
REPORT GIVEN TO NURSE CARRERO FOR KARRIE
--- NOTE | 2016-10-24 18:30 | NUR ---
FOUNDRY TECHNICIAN NOTES RECEIVED PATIENT FROM ER. VIA BETTY. AAO TO SELF ONLY. ON RA, NOT IN ANY DISTRESS. DOES NOT TALK. FLAT AFFECT. LEFT AC 20G IV ACCESS FLUSHES WELL. SITE CLEAR. NO SKIN ISSUES NOTED. VITAL SIGNS TAKEN. DR. DAMON MADE AWARE. AWAITING ADMITTING ORDERS. Addendum: 10/24/16 at 1839 by YOEL GARCIA RN TELEMETRY READS HR 61
[2016-10-24 18:41] VITALS: BP 117/60
[2016-10-24] MEDS ORDERED: HYDROCODONE/APAP 5/325MG 1 EACH TABLET PO PRN (19:00)
[2016-10-24] MEDS ORDERED: MAG HYDROX/AL HYDROX/SIMETH 30 ML UDC PO PRN (19:00)
[2016-10-24] MEDS ORDERED: ACETAMINOPHEN 325 MG TABLET PO PRN (19:00)
[2016-10-24] MEDS ORDERED: ONDANSETRON HCL/PF 4 MG/2 ML VIAL IVP PRN (19:00)
[2016-10-24] MEDS ORDERED: Z GUARD REMEDY 2 OZ OINT TP PRN (19:00)
[2016-10-24] MEDS ORDERED: ZOLPIDEM TARTRATE 5 MG TABLET PO PRN (19:00)
[2016-10-24] MEDS ORDERED: DEXTROSE 50%-WATER 50 ML DISP.SYRIN IV PRN (19:00)
[2016-10-24] MEDS ORDERED: MAGNESIUM HYDROXIDE 30 ML UDC PO PRN (19:00)
--- NOTE | 2016-10-24 19:30 | NUR ---
RN NOTES RECEIVED PT. AWAKE ON BED, A/OX1, CONFUSED, AT BEDSIDE, ADMISSION INSTRUCTION RENDERED CALL LIGHT WITHIN REACH, SIDERAILS UPX2 CONTINUE TO MONITOR
[2016-10-24 20:00] VITALS: BP 129/72
[2016-10-24] MEDS: ENOXAPARIN SODIUM 40 MG/0.4 ML DISP.SYRIN SQ SCH (20:43)
[2016-10-24] MEDS: BRIMONIDINE TARTRATE OPHT SOLN 5 ML BOTTLE EACHEYE SCH (20:45)
[2016-10-24] MEDS: IV NS 0.9% 1,000 ML IV PRN (20:45)
[2016-10-24] MEDS: BLOOD SUGAR DIAGNOSTIC 1 EACH STRIP VI SCH (22:00)
[2016-10-25] VITALS: BP 135/69
--- NOTE | 2016-10-25 00:15 | NUR ---
RN NOTES PT IS TRYING TO KICK US , AND ALMOST HIT THE FACE OF THE CHARGE NURSE. DR. COPPOLA CAME AND GAVE AN ORDER OF BILATERAL SOFT WRIST RESTRAINTS, ORDER NOTED AND CARRIED OUT
--- NOTE | 2016-10-25 02:00 | NUR ---
RN NOTES OFFERED JUICE AND PT. TOOK IT
--- NOTE | 2016-10-25 06:27 | NUR ---
RN NOTES AWAKE, IV FLUID RUNNING, IV LINE PATENT NO REDNESS OR SWOLLEN, MORNING CARE RENDERED, PT. NEEDS ATTENDED. ENDORSED TO DAYSHIFT NURSE FOR CONTINUITY OF CARE
--- NOTE | 2016-10-25 06:30 | NUR ---
RN NOTES SPOKE TO HIS AND INFORMED THEM THAT PT'S WAS TRYING TO KICK US AND HIT THE FACE OF OUR CHARGE NURSE THAT'S WHY THE DOCTOR ORDERED A BILATERAL SOFT WRIST RESTRAINT. THE AGREED BECAUSE ALSO IN THE ALF PT. HIT ONE OF THE NURSE THERE.,. FAMILY EDUCATION WAS GIVEN .
[2016-10-25 07:09] LABS: BASOPHILS % (AUTO) 0.5 % (0.0-2.0); EOSINOPHILS # (AUTO) 0.1 /CMM (0.0-0.7); EOSINOPHILS % (AUTO) 1.3 % (0.0-6.0); HEMATOCRIT 35 % (39-51); HEMOGLOBIN 11.3 g/dL (13.5-17.5); LYMPHOCYTES # (AUTO) 1.2 /CMM (0.8-4.8); LYMPHOCYTES % (AUTO) 23.7 % (20.0-44.0); MEAN CORPUSCULAR HEMOGLOBIN 30 PG (26.0-33.0); MEAN CORPUSCULAR HGB CONC 33 g/dl (31.0-36.0); MEAN CORPUSCULAR VOLUME 90 fL (80-96); MONOCYTES # (AUTO) 0.5 /CMM (0.1-1.30); MONOCYTES % (AUTO) 9.6 % (2.0-12.0); NEUTROPHILS # (AUTO) 3.4 /CMM (1.8-8.9); NEUTROPHILS % (AUTO) 64.9 % (43.0-81.0); PLATELET COUNT (AUTO) 177 /CMM (150-450); RDW COEFFICIENT OF VARIATION 13.1 (11.5-15.0); RED BLOOD CELL COUNT(AUTO) 3.84 MIL/uL (4.5-6.0); WHITE BLOOD COUNT (AUTO) 5.2 K/uL (4.3-11.0)
[2016-10-25 07:23] LABS: CALCIUM, SERUM 8.4 mg/dL (8.5-10.1); CARBON DIOXIDE 29 mmol/L (21-32); CHLORIDE 109 mmol/L (98-107); CREATININE 0.8 mg/dL (0.6-1.3); GLUCOSE 97 mg/dL (74-106); MAGNESIUM 1.4 mg/dL (1.8-2.4); PHOSPHORUS 3.1 mg/dL (2.5-4.9); SODIUM SERUM 145 mmol/L (136-145); UREA NITROGEN, BLOOD 19 mg/dL (7-18)
[2016-10-25 08:00] VITALS: BP_SYST 77; BP_SYST 90; BP_DIAS 54; BP_DIAS 55
--- NOTE | 2016-10-25 08:00 | NUR ---
C++ PROFESSOR AM NOTES RECEIVED PATIENT AAO TO SELF ONLY.CONFUSED. ON RA, NOT IN ANY DISTRESS. MUMBLES IN MALTESE WHEN HE TALKS.SPEAKS INCOHERENTLY.WITH LEFT AC 20G IV ACCESS FLUSHES WELL. SITE CLEAR. WITH BILATERAL SOFT WRIST RESTRAINTS DUE TO RESTLESSNESS AND COMBATIVENESS WITH STAFF DURING CARE.TURNED AND REPOSITIONED EVERY TWO HRS.PT ATE 100%BREAKFAST BEING FED BY POWDERED SUGAR SUPERVISOR DURING MEALS.WILL CONTINUE TO MONITOR.CALL LIGHT PLACED WITHIN REACH.
[2016-10-25] MEDS ORDERED: Magnesium 1GM/D5W 100ML PREMIX PIGGYBACK IV ONE (09:00)
[2016-10-25] MEDS: DIVALPROEX SODIUM 250 MG TABLET.DR PO SCH ×3 (09:12→17:28)
[2016-10-25] MEDS: PANTOPRAZOLE 40 MG TABLET.DR PO SCH (09:12)
[2016-10-25] MEDS: ASPIRIN EC 325 MG TABLET.DR PO SCH (09:13)
[2016-10-25] MEDS: MEMANTINE HCL 5 MG TABLET PO SCH ×2 (09:14→17:28)
[2016-10-25] MEDS: ATORVASTATIN 10 MG TABLET PO SCH (09:14)
[2016-10-25] MEDS: DONEPEZIL 5 MG TABLET PO SCH (09:15)
[2016-10-25] MEDS: BLOOD SUGAR DIAGNOSTIC 1 EACH STRIP VI SCH ×5 (09:20→21:38)
[2016-10-25 09:30] VITALS: BP 98/52
[2016-10-25] MEDS ORDERED: Magnesium 1GM/D5W 100ML PREMIX 100 ML IV SCH (09:30)
[2016-10-25] MEDS: POLYVINYL ALCOHOL 15 ML BOTTLE EACHEYE SCH ×2 (09:38→17:28)
[2016-10-25] MEDS: BRIMONIDINE TARTRATE OPHT SOLN 5 ML BOTTLE EACHEYE SCH ×2 (09:40→17:28)
--- NOTE | 2016-10-25 09:40 | NUR ---
WOUND CARE CONSULT: PT PRESENTS WITH RT ELBOW SKIN TEAR, PRESENT ON ADMISSION WELL SACRAL/BUTTOCK BRUISING. [facility]. ALL SKIN PROTECTION AND WOUND RECOMMENDATIONS DISCUSSED WITH NURSING STAFF. PT IS INCONTINENT. IN AGREEMENT WITH PLAN OF CARE. Addendum: 10/25/16 at 0942 by ALIA BELLE WNDNU Amended: Links added.
[2016-10-25] MEDS ORDERED: SECONDARY IV SET 1 EA INFUS.SET MC ONE (10:12)
[2016-10-25] MEDS: NEOMY SULF/BACITRAC ZN/POLY 15 GM TUBE TP SCH (12:56)
[2016-10-25] MEDS: INSULIN REGULAR, HUMAN 100 UNIT/ML 3 ML VIAL SQ PRN (12:57)
[2016-10-25 16:00] VITALS: BP 94/58
[2016-10-25] MEDS: CEFTRIAXONE 1 G in IV D5W 50 ML IV SCH (18:17)
[2016-10-25] MEDS: IV NS 0.9% 1,000 ML IV PRN (18:25)
--- NOTE | 2016-10-25 18:42 | NUR ---
RN PM NOTES PT RESTING ON BED AWAKE AND CALM. NO ACUTE DISTRESS NOTED. NO CHANGE IN CONDITION. BED IN LOWEST POSITION. SIDE RAILS UP. CALL LIGHT WITHIN REACH. WILL CONTINUE TO MONITOR.
--- NOTE | 2016-10-25 19:25 | NUR ---
MS/RN NOTES RECEIVED PT. LYING IN BED. AWAKE, ALERT AND ORIENTED X1. BREATHING EVEN AND UNLABORED ON ROOM AIR. NO SOB, RESPIRATORY DISTRESS OR S/S OF PAIN NOTED. PT. WITH LEFT AC 18 GAUGE PERIPHERAL IV PRESENT, PATENT AND INTACT ADMINISTERING TO PT. NS @ 75ML/HR. PT. WITH BILATERAL SOFT WRIST RESTRAINTS PRESENT AND INTACT. PT. CIRCULATION ASSESSED. BED IN LOWEST POSITION, CALL LIGHT WITHIN REACH, WILL CONTINUE TO MONITOR.
[2016-10-25 20:00] VITALS: BP 104/61
--- NOTE | 2016-10-25 20:49 | NUR ---
Patient resides at [facility] [address] [place] [address] [place] [address] . Patient was just discharged from [facility] on 10/09 back to the [facility] Admin will reeval patient prior discharge if patient is appropriate to go back. Addendum: 10/25/16 at 2048 by SHIRIN DE LA GARZA RN Amended: Links added.
[2016-10-25] MEDS: ENOXAPARIN SODIUM 40 MG/0.4 ML DISP.SYRIN SQ SCH (21:38)
--- NOTE | 2016-10-26 06:50 | NUR ---
MS/RN NOTES PT. SITTING UP IN BED RESTING. BREATHING EVEN AND UNLABORED ON ROOM AIR. NO SOB, RESPIRATORY DISTRESS OR S/S OF PAIN NOTED. PT. WITH RIGHT UPPER ARM 22 GAUGE PERIPHERAL IV PRESENT, PATENT AND INTACT ADMINISTERING TO PT. NS @ 75ML/HR. ALL PT. NEEDS MET. PT. OFFLOADED. TURNED AND REPOSITIONED Q2H AND NEEDED. BED IN LOWEST POSITION, CALL LIGHT WITHIN REACH, WILL ENDORSE TO DAYSHIFT NURSE FOR CONTINUITY OF CARE.
[2016-10-26] MEDS: BLOOD SUGAR DIAGNOSTIC 1 EACH STRIP VI SCH ×4 (06:53→21:42)
--- NOTE | 2016-10-26 07:19 | NUR ---
MS RN OPENING NOTES RECEIVED PATIENT ASLEEP, EASILY AWAKENS. HEAD OF BED ELEVATED. ON ROOM AIR, BREATHING UN-LABORED WITH NO SOB. IV ACCESS ON RIGHT UPPER ARM INTACT AND PATENT WITH IVF OF NS AT 75ML/HR INFUSING, NO S/S OF INFILTRATION NOTED. CALL LIGHT WITHIN REACH. BED LOCKED AND IN LOWEST POSITION. ALL SAFETY PRECAUTIONS MAINTAINED. WILL CONTINUE TO MONITOR ACCORDINGLY.
[2016-10-26 08:00] VITALS: BP 113/59
[2016-10-26] MEDS: MEMANTINE HCL 5 MG TABLET PO SCH ×2 (08:38→16:32)
[2016-10-26] MEDS: DIVALPROEX SODIUM 250 MG TABLET.DR PO SCH ×3 (08:38→16:32)
[2016-10-26] MEDS: ASPIRIN EC 325 MG TABLET.DR PO SCH (08:38)
[2016-10-26] MEDS: PANTOPRAZOLE 40 MG TABLET.DR PO SCH (08:38)
[2016-10-26] MEDS: DONEPEZIL 5 MG TABLET PO SCH (08:39)
[2016-10-26] MEDS: ATORVASTATIN 10 MG TABLET PO SCH (08:39)
[2016-10-26] MEDS: BRIMONIDINE TARTRATE OPHT SOLN 5 ML BOTTLE EACHEYE SCH ×2 (08:40→16:32)
[2016-10-26] MEDS: POLYVINYL ALCOHOL 15 ML BOTTLE EACHEYE SCH ×2 (08:40→16:32)
[2016-10-26] MEDS: NEOMY SULF/BACITRAC ZN/POLY 15 GM TUBE TP SCH (08:48)
[2016-10-26] MEDS: *INSULIN REGULAR(HUMULIN R)HUM 100 UNIT/ML VIAL SQ PRN ×2 (12:29→21:47)
[2016-10-26] MEDS ORDERED: QUETIAPINE FUMARATE 25 MG TABLET PO PRN (12:30)
--- NOTE | 2016-10-26 13:23 | NUR ---
RN NOTES PATIENT'S IV ACCESS ON RIGHT UPPER ARM DISLODGED, NEW IV LINE INSERTED TO LEFT FORE ARM G#22 THEN CONTINUES ON IVF OF NS @ 75ML/HR. WILL CONTINUE TO MONITOR.
[2016-10-26] MEDS: IV NS 0.9% 1,000 ML IV PRN (14:05)
[2016-10-26 16:00] VITALS: BP 129/60
[2016-10-26] MEDS: CEFTRIAXONE 1 G in IV D5W 50 ML IV SCH (16:31)
--- NOTE | 2016-10-26 18:51 | NUR ---
RN CLOSING NOTES PATIENT AWAKE AND RESTING IN BED. ALERT AND ORIENTED X2, CONFUSED AT TIMES, RE-ORIENTED AND MORAL SUPPORT GIVEN. ON ROOM AIR, NO SOB NOTED. IV ACCESS ON LFA INTACT AND PATENT WITH IVF OF NS @ 75ML/HR INFUSING WELL, NO S/S OF INFILTRATION NOTED. B/L SOFT WRIST KEPT IN PLACED. ALL NEEDS AND CARE PROVIDED WELL. DUE MEDS GIVEN ORDERED AND TOLERATED. CALL LIGHT KEPT WITHIN REACH. BED LOCKED AND IN LOW POSITION WITH SIDE-RAILS UP X2. ALL SAFETY PRECAUTIONS MAINTAINED. WILL ENDORSED TO GATE KEEPER NURSE FOR KARRIE
--- NOTE | 2016-10-26 19:20 | NUR ---
MS RN OPENING NOTES: RECEIVED PT IN BED AWAKE AND IS A/O X1-2. PT HAS B SOFT WRIST RESTRAINTS ON. PT HAS IV ON L FOREARM 22G AND IS PATENT AND INTACT AND IS BEING INFUSED W/ NS AT 75ML/HR. BED KEPT IN LOCKED, LOWEST POSITION, AND SIDE RAILS X 2 UP. NO SIGNS OR SYMPTOMS OF DISTRESS NOTED AT THIS TIME. WILL CONTINUE TO MONITOR PT.
[2016-10-26 20:00] VITALS: BP 106/65
[2016-10-26] MEDS: ENOXAPARIN SODIUM 40 MG/0.4 ML DISP.SYRIN SQ SCH (20:41)
--- NOTE | 2016-10-26 21:44 | NUR ---
MS RN NOTES: PT'S BLOOD SUGAR WAS 145. PT RECEIVED 2 UNITS OF INSULIN. WILL CONTINUE TO MONITOR PT.
[2016-10-27] MEDS: IV NS 0.9% 1,000 ML IV PRN ×2 (02:59→16:36)
[2016-10-27] MEDS: BLOOD SUGAR DIAGNOSTIC 1 EACH STRIP VI SCH ×4 (06:10→21:16)
[2016-10-27] MEDS: PANTOPRAZOLE 40 MG TABLET.DR PO SCH (06:28)
--- NOTE | 2016-10-27 07:27 | NUR ---
MS RN OPENING NOTES PATIENT RECEIVED IN BED AWAKE, ALERT AND ORIENTED X 2, NO COMPLAINTS OF PAIN OR DISCOMFORTS AT THIS TIME. HEAD OF BED ELEVATED. ON ROOM AIR, BREATHING EVEN AND UNLABORED. IV ACCESS ON LEFT FOREARM G#22 INTACT AND PATENT WITH IVF OF NS @ 75ML/HR INFUSING WELL, NO S/S OF INFILTRATION OR PHLEBITIS NOTED. B/L SOFT WRIST RESTRAINTS IN PLACED. CALL LIGHT WITHIN REACH. BED LOCKED AND IN LOWEST POSITION WITH SIDE-RAILS UP X2. ALL SAFETY PRECAUTIONS MAINTAINED. WILL CONTINUE TO MONITOR ACCORDINGLY.
--- NOTE | 2016-10-27 07:30 | NUR ---
MS RN CLOSING NOTES: ALL NEEDS WERE ATTENDED AND ANTICIPATED FOR. PT IS AWAKE AND IS A/O X1-2. PT IS CONFUSED AND HAS GARBLED TAJIK SPEECH. PT KEPT CLEAN, DRY, AND COMFORTABLE. CALL LIGHT WITHIN PT'S REACH. BED KEPT IN LOCKED, LOWEST POSITION, AND SIDE RAILS X 2 UP. PT HAS IV ON L FOREARM 22G AND IS PATENT AND INTACT; ALSO BEING INFUSED WITH IV 0.9% NS 1,000ML AT 75ML/HR. PT ALSO HAS IV ON R UPPER ARM #22G AND IS ALSO PATENT AND INTACT. PT HAS BILATERAL SOFT RESTRAINTS. ENDORSED TO AM NURSE FOR KARRIE.
[2016-10-27 08:00] VITALS: BP_SYST 106; BP_SYST 146; BP_DIAS 57; BP_DIAS 77
[2016-10-27] MEDS: MEMANTINE HCL 5 MG TABLET PO SCH ×2 (08:19→16:34)
[2016-10-27] MEDS: ASPIRIN EC 325 MG TABLET.DR PO SCH (08:19)
[2016-10-27] MEDS: POLYVINYL ALCOHOL 15 ML BOTTLE EACHEYE SCH ×2 (08:20→16:33)
[2016-10-27] MEDS: DIVALPROEX SODIUM 250 MG TABLET.DR PO SCH ×3 (08:20→16:34)
[2016-10-27] MEDS: BRIMONIDINE TARTRATE OPHT SOLN 5 ML BOTTLE EACHEYE SCH ×2 (08:20→16:33)
[2016-10-27] MEDS: DONEPEZIL 5 MG TABLET PO SCH (08:20)
[2016-10-27] MEDS: NEOMY SULF/BACITRAC ZN/POLY 15 GM TUBE TP SCH (08:21)
[2016-10-27] MEDS: ATORVASTATIN 10 MG TABLET PO SCH (08:25)
[2016-10-27] MEDS ORDERED: LEVO500T15 PO (10:01)
[2016-10-27] MEDS: INSULIN REGULAR, HUMAN 100 UNIT/ML 3 ML VIAL SQ PRN (12:11)
[2016-10-27 15:42] VITALS: BP 100/56
[2016-10-27 16:00] VITALS: BP 100/56
[2016-10-27] MEDS: CEFTRIAXONE 1 G in IV D5W 50 ML IV SCH (16:35)
--- NOTE | 2016-10-27 18:44 | NUR ---
RN CLOSING NOTES PATIENT IN BED ALERT AND ORIENTED X2, QUIET AND CALMED THROUGHOUT THE DAY. TRIED TO COMMUNICATE BUT SPEAKS INCOMPREHENSIBLY, RE-ORIENTED AND MORAL SUPPORT GIVEN. MAINTAINED ON ROOM AIR, RESPIRATION EVEN AND UN-LABORED. IV ACCESS ON LFA INTACT AND PATENT WITH IVF OF NS @ 75ML/HR INFUSING WELL, NO S/S OF INFILTRATION NOTED. B/L SOFT WRIST KEPT IN PLACED, SKIN CHECKED DONE Q15 MINUTES AND PRN, NO REDNESS OR BRUISES NOTED. CALL LIGHT KEPT WITHIN REACH. BED LOCKED AND IN LOW POSITION WITH SIDE-RAILS UP X2. ALL SAFETY PRECAUTIONS MAINTAINED. ALL NEEDS AND CARE PROVIDED WELL. DUE MEDS GIVEN ORDERED AND TOLERATED. WILL ENDORSED TO TRUMPET TEACHER NURSE FOR KARRIE
--- NOTE | 2016-10-27 19:59 | NUR ---
MS/RN OPENING NOTES PATIENT IN BED, HOB ELEVATED. MONITORING FOR S/S OF PULLING OUT IV TUBING AND GETTING UP OF BED UNASSISTED. FAMILY AT BEDSIDE. ON RESTRAINT BEING CHANGED EVERY 15 MINUTES.MONITORING FOR ANY S/S OF SKIN IRRITATION.FAMILY DISCUSSED CARE FOR PATIENT UPON DC AWAITING FOR INSURANCE AND PLACEMENT SUITABLE FOR THEIR FAMILY NEEDS.
[2016-10-27 20:00] VITALS: BP_SYST 118; BP_SYST 98; BP_DIAS 58; BP_DIAS 70
[2016-10-27] MEDS: ENOXAPARIN SODIUM 40 MG/0.4 ML DISP.SYRIN SQ SCH (20:57)
[2016-10-27] MEDS: *INSULIN REGULAR(HUMULIN R)HUM 100 UNIT/ML VIAL SQ PRN (21:22)
--- NOTE | 2016-10-28 05:10 | NUR ---
MS/RN NOTES PATIENT IV SITE ON LFA DISLODGE. PATIENT PROVIDED FLUIDS TOLERATE AND ABLE TO SWALLOW SAFELY, HOB ELEVATED.NOT ABLE TO REINSERT AT THIS TIME. WILL F/U AM AND LET MD KNOW FOR ANY ORDER.
--- NOTE | 2016-10-28 05:45 | NUR ---
MS/RN NOTES MD COCHRAN WAS INFORMED AND MADE AWARE .ORDERED TO D/C IV FLUIDS . PATIENT WILL BE PROVIDE FLUIDS TOLERATED.
[2016-10-28] MEDS: BLOOD SUGAR DIAGNOSTIC 1 EACH STRIP VI SCH ×2 (06:45→12:22)
--- NOTE | 2016-10-28 06:57 | NUR ---
TELE/RN CLOSING NOTES PATIENT IN BED, HOB ELEVATED. NO S/S OF SOB OR DISTRESS.ON FREQUENT MONITORING AND WILL ENDORSE TO AM RN FOR KARRIE.
--- NOTE | 2016-10-28 07:20 | NUR ---
ms rn initial notes Received patient in bed, asleep, head of bed elevated, no SOB or distress noted. on room air and tolerated well. Bilateral soft restraint in placed with good circulation. No IV access per endorsed by material handler 2nd shift MD made aware. Kept patient clean and comfortable in bed, call light with in patient reach, will continue to monitor accordingly.
[2016-10-28 08:00] VITALS: BP 130/69
[2016-10-28] MEDS: DIVALPROEX SODIUM 250 MG TABLET.DR PO SCH ×2 (08:46→12:21)
[2016-10-28] MEDS: DONEPEZIL 5 MG TABLET PO SCH (08:46)
[2016-10-28] MEDS: PANTOPRAZOLE 40 MG TABLET.DR PO SCH (08:46)
[2016-10-28] MEDS: ASPIRIN EC 325 MG TABLET.DR PO SCH (08:46)
[2016-10-28] MEDS: ATORVASTATIN 10 MG TABLET PO SCH (08:46)
[2016-10-28] MEDS: NEOMY SULF/BACITRAC ZN/POLY 15 GM TUBE TP SCH (08:47)
[2016-10-28] MEDS: MEMANTINE HCL 5 MG TABLET PO SCH (08:47)
[2016-10-28] MEDS: POLYVINYL ALCOHOL 15 ML BOTTLE EACHEYE SCH (08:48)
[2016-10-28] MEDS: BRIMONIDINE TARTRATE OPHT SOLN 5 ML BOTTLE EACHEYE SCH (08:48)
[2016-10-28] MEDS: *INSULIN REGULAR(HUMULIN R)HUM 100 UNIT/ML VIAL SQ PRN (12:22)
--- NOTE | 2016-10-28 15:36 | NUR ---
ms newborn photographer notes Discharge instructions given to [facility] nurse and able to understand instructions. Patient is confused and unable to comprehend. Discontinued IV and pressured applied to prevent bleeding. Patient is confused, discharge paper signed by 2 nurses. Pictures taken by the maintenance technician 3rd shift nurse and filed in the chart. FLU vaccine is out of season, pneumonia vaccine was already received. Patient left via gurney accompanied by 2 EMT's going to [facility], in stable condition, no SOB or distress noted, nor chest pain. MD and charge nurse aware. Vital signs checked and recorded.
== END 2016-10-28 15:36 | DRG 682 ==
LOC: ER 15:20 → TELE 18:09 → MED 23:38
PROVIDERS: ADMIT Internal Medicine; ATTEND Internal Medicine
DX: N17.0 Acute kidney failure with tubular necrosis (principal); G92 Toxic encephalopathy; N39.0 Urinary tract infection, site not specified; F03.91 Unspecified dementia, unspecified severity, with behavioral disturbance; E11.9 Type 2 diabetes mellitus without complications; E78.5 Hyperlipidemia, unspecified; E86.0 Dehydration; I10 Essential (primary) hypertension; K21.9 Gastro-esophageal reflux disease without esophagitis; I48.91 Unspecified atrial fibrillation; Z79.899 Other long term (current) drug therapy; F29 Unspecified psychosis not due to a substance or known physiological condition; H40.9 Unspecified glaucoma
CPT/HCPCS: 36415; 70450-TC; 71010-TC; 80048-TC; 80076-TC; 81000-TC; 82140-TC; 82962-TC; 83605-TC; 83735-TC; 84100-TC; 84443-TC; 84484-TC; 85025-TC; 85730-TC; 87040-TC; 87081-TC; A4606; J0696; J1650; J1815; J3475; J7030; J7040; J7060; Z7610

== ENCOUNTER 2016-10-30 12:59 | Inpatient (IN) | payer BC ==
[~2016-10-30] VITALS: Ht 182.9 cm; Wt 64.9 kg
[~2016-10-30 12:59] MED LIST changes: -ACET650T10 PO; +ASPI-869 PO; -ASPI325T2 PO; +ATOR10TA PO; -ATOR20TA PO; -BISA10SU8 RC; +DIVA250T6 PO; -DORZ10DR11 EACHEYE; -LATA2.5D7 EACHEYE; +LEVO500T15 PO; +LORA2ORA SL; -MAGN400O6 PO; -NA P133E RC; +QUET25TA PO; +RISP0.2515 PO
--- NOTE | 2016-10-30 13:05 | NUR ---
Kevin from [facility] due to altered mental status. Patient received altered, response to pain only. pupil pinpoint. No sob noted. Sating 95% on room air. Skin is warm to touch and non diaphoetic. Patient is afebrile. Gowned pt and placed on tele monitor. Iv on lac 2, noted. Narcan 2mg given in field
[2016-10-30] MEDS ORDERED: NALOXONE PREFILLED SYRINGE 2 MG/2 ML SYRINGE ONE ×3 (13:06→13:26)
--- NOTE | 2016-10-30 13:08 | NUR ---
Dr. Sepulveda at bedside
[2016-10-30] MEDS ORDERED: IV NS 0.9% 500 ML IV ONE (13:15)
--- NOTE | 2016-10-30 13:15 | NUR ---
urine sample sent to lab
[2016-10-30] MEDS ORDERED: LEVO500T15 PO (13:16)
--- NOTE | 2016-10-30 13:20 | NUR ---
CONTACTED FACILITY TO INQUIRE ABOUT DNR OR POLST
--- NOTE | 2016-10-30 13:20 | NUR ---
CONTACTED PATIENT'S NEXT OF KIN, HIS ABAD SMITH [phone]
[2016-10-30 13:21] LABS: BASOPHILS % (AUTO) 0.4 % (0.0-2.0); EOSINOPHILS # (AUTO) 0.1 /CMM (0.0-0.7); HEMATOCRIT 34 % (39-51); HEMOGLOBIN 11.7 g/dL (13.5-17.5); LYMPHOCYTES % (AUTO) 35.5 % (20.0-44.0); MEAN CORPUSCULAR HEMOGLOBIN 31 PG (26.0-33.0); MEAN CORPUSCULAR HGB CONC 35 g/dl (31.0-36.0); MEAN CORPUSCULAR VOLUME 89 fL (80-96); MONOCYTES # (AUTO) 0.7 /CMM (0.1-1.30); MONOCYTES % (AUTO) 12.4 % (2.0-12.0); NEUTROPHILS # (AUTO) 2.9 /CMM (1.8-8.9); NEUTROPHILS % (AUTO) 49.7 % (43.0-81.0); PLATELET COUNT (AUTO) 164 /CMM (150-450); RDW COEFFICIENT OF VARIATION 12.7 (11.5-15.0); RED BLOOD CELL COUNT(AUTO) 3.81 MIL/uL (4.5-6.0); WHITE BLOOD COUNT (AUTO) 5.7 K/uL (4.3-11.0)
--- NOTE | 2016-10-30 13:22 | NUR ---
DR JOHNSON ON THE PHONE WITH PATIENT'S
[2016-10-30 13:23] LABS: APPEARANCE,URINE Clear (CLEAR); BILIRUBIN,URINE Negative (NEGATIVE); BLOOD, URINE Negative Ery/uL (NEGATIVE); COLOR,URINE Yellow (YELLOW); KETONES,URINE Negative (NEGATIVE); LEUKOCYTE ESTERASE ,URINE Negative (NEGATIVE); NITRITE, URINE Negative (NEGATIVE); PH,URINE 5.5 (5.0-8.0); PROTEIN,URINE Negative (NEGATIVE); UGLUCOSE Negative (NEGATIVE)
--- NOTE | 2016-10-30 13:24 | NUR ---
Another Narca 2mg ivp given per MD Sepulveda's order. patient remains verbally non reponsive
[2016-10-30 13:28] LABS: RBC,URINE NONE SEEN /HPF (0-2)
[2016-10-30 13:29] LABS: BACTERIA,URINE Rare /HPF (None Seen); SQUAMOUS EPITHELIAL CELL,UR Few /HPF (None Seen)
[2016-10-30] MEDS ORDERED: NALOXONE PREFILLED SYRINGE 2 MG/2 ML SYRINGE IV ONE ×3 (13:30→16:00)
[2016-10-30] MEDS ORDERED: NALOXONE HCL 0.4 MG/ML AMPUL IV ONE (13:30)
[2016-10-30] MEDS ORDERED: IV NS 0.9% 500 ML BAG IV ONE (13:30)
[2016-10-30 13:34] LABS: INR 1.12 (0.87-1.13); PROTHROMBIN TIME 11.7 SECS (9.5-12.7)
[2016-10-30 13:38] LABS: ALANINE AMINOTRANSFERASE 15 U/L (12-78); ALBUMIN 2.7 g/dL (3.4-5.0); ALKALINE PHOSPHATASE 107 U/L (46-116); ASPARTATE AMINOTRANSFERASE 15 U/L (15-37); BILIRUBIN,DIRECT 0.1 mg/dL (0.0-0.2); BILIRUBIN,TOTAL 0.7 mg/dL (0.2-1.0); CARBON DIOXIDE 32 mmol/L (21-32); CHLORIDE 108 mmol/L (98-107); CREATININE 0.9 mg/dL (0.6-1.3); GLUCOSE 164 mg/dL (74-106); POTASSIUM 3.4 mmol/L (3.5-5.1); SODIUM SERUM 143 mmol/L (136-145); TOTAL PROTEIN, SERUM 6.1 g/dL (6.4-8.2)
[2016-10-30 13:39] LABS: TROPONIN I < 0.017 ng/mL (0.00-0.056)
[2016-10-30 13:40] LABS: SALICYLATE 0.3 mg/dL (2.8-20.0)
[2016-10-30 13:47] LABS: CALCIUM, SERUM 8.6 mg/dL (8.5-10.1); UREA NITROGEN, BLOOD 14 mg/dL (7-18)
--- NOTE | 2016-10-30 13:49 | NUR ---
PAGED DR JONES FOR EPIC
--- NOTE | 2016-10-30 13:57 | NUR ---
pt's at bedside
[2016-10-30 14:06] LABS: SERUM AMMONIA 15 umol/L (11-32)
--- NOTE | 2016-10-30 14:08 | NUR ---
CALLED [facility] AGAIN
[2016-10-30 14:17] LABS: THYROID STIMULATING HORMONE 3.592 uIU/mL (0.358-3.74)
--- NOTE | 2016-10-30 14:40 | NUR ---
RACHEL 102
[2016-10-30 14:53] LABS: VALPROIC ACID 25 ug/mL (50-100)
--- NOTE | 2016-10-30 14:56 | NUR ---
Zohaib garica in [facility], [place] - 10/30/16 at 1457 by YIN Report given to nurse Richards for change of condition
--- NOTE | 2016-10-30 14:58 | NUR ---
Report given to nurse Maurice for continuity of care
--- NOTE | 2016-10-30 14:58 | NUR ---
patient awake, vss
[2016-10-30 15:04] LABS: ACETAMINOPHEN 1 ug/ml (10-30)
[2016-10-30] MEDS ORDERED: NALOXONE HCL 0.4 MG/ML AMPUL IV STA ×2 (15:48→15:51)
[2016-10-30] MEDS ORDERED: IV NS 0.9% 1,000 ML ONE (15:55)
[2016-10-30] MEDS ORDERED: IV SET PRIMARY PUMP SET 1 EA INFUS.SET MC ONE (15:55)
[2016-10-30] MEDS: ASPIRIN EC 325 MG TABLET.DR PO SCH (15:57)
[2016-10-30] MEDS: PANTOPRAZOLE 40 MG TABLET.DR PO SCH (15:57)
[2016-10-30] MEDS: METFORMIN 500 MG TABLET PO SCH (15:57)
[2016-10-30] MEDS: ATORVASTATIN 10 MG TABLET PO SCH (15:57)
[2016-10-30 16:00] VITALS: BP 127/54
[2016-10-30] MEDS ORDERED: ONDANSETRON HCL/PF 4 MG/2 ML VIAL IVP PRN (16:00)
[2016-10-30] MEDS ORDERED: PANTOPRAZOLE 40 MG TABLET.DR PO SCH (16:00)
[2016-10-30] MEDS ORDERED: MAG HYDROX/AL HYDROX/SIMETH 30 ML UDC PO PRN (16:00)
[2016-10-30] MEDS ORDERED: Z GUARD REMEDY 2 OZ OINT TP PRN (16:00)
[2016-10-30] MEDS ORDERED: ACETAMINOPHEN 325 MG TABLET PO PRN (16:00)
[2016-10-30] MEDS ORDERED: HYDROCODONE/APAP 5/325MG 1 EACH TABLET PO PRN (16:00)
[2016-10-30] MEDS ORDERED: MAGNESIUM HYDROXIDE 30 ML UDC PO PRN (16:00)
[2016-10-30] MEDS: IV NS 0.9% 1,000 ML IV PRN (16:12)
[2016-10-30 16:27] LABS: ABG BASE EXCESS 1.4 mmol/L; ABG OXYGEN SATURATION 97.2 % (92.0-98.5); ABG PCO2 42.4 mmHg (35.0-45.0); ABG PO2 103.9 mmHg (75.0-100.0); AaDO2 45.7 mmHg; COHb 0.9 % (0.5-1.5); MetHb 0.5 % (0.0-1.5); O2Hb 95.8 % (94.0-97.0); SITE, ABG Left Radial; VENT MODE, BG NASAL CANNULA
[2016-10-30] MEDS: MEMANTINE HCL 5 MG TABLET PO SCH (16:39)
[2016-10-30] MEDS: BRIMONIDINE TARTRATE OPHT SOLN 5 ML BOTTLE EACHEYE SCH (17:12)
--- NOTE | 2016-10-30 19:44 | NUR ---
FUNERAL SERVICE MANAGER. INITIAL ASSESSMENT. RECEIVED THE PT REST ON THE BED. PT AWAKE, ALERT, FOLLOW COMMANDS. OXYGEN 3L VIA NASAL CANNULA. SAT 98%PIPE FINISHING SUPERVISOR SHOWING S YANNI. IV RT UPPER ARM 18G,LT HAND 18G. IVF NS 75 ML/H. FC PATENT. HOB ELEVATED. TURN AND REPOSITION Q2H. WILL CONTINUE TO MONITOR VITALS.
[2016-10-30 20:00] VITALS: BP 96/60
[2016-10-30 21:00] VITALS: BP 96/60
[2016-10-31] VITALS (9 sets, daily range): BP systolic 98–139; BP diastolic 52–77
[2016-10-31] MEDS: IV NS 0.9% 1,000 ML IV PRN ×2 (02:17→16:37)
--- NOTE | 2016-10-31 03:13 | NUR ---
RN NOTE. AM CARE, ORAL CARE, BED BATH GIVEN. LINEN CHANGED. REMAINING SAME OXYGEN TOLERATED WELL. SAT 98%. NO ACUTE DISTRESS NOTED. DIVISION HUMAN RESOURCES MANAGER SHOWING S YANNI. HOB ELEVATED. AFEBRILE. FC PATENT. URINE DRAINING. HOB ELEVATED. IV RT HAND 20G IVF NS 75ML/H.TURN AND REPOSITION Q2H. WILL CONTINUE TO MONITOR VITALS.
[2016-10-31 06:16] LABS: BASOPHILS % (AUTO) 0.4 % (0.0-2.0); EOSINOPHILS # (AUTO) 0.2 /CMM (0.0-0.7); HEMATOCRIT 35 % (39-51); HEMOGLOBIN 11.8 g/dL (13.5-17.5); LYMPHOCYTES # (AUTO) 1.6 /CMM (0.8-4.8); LYMPHOCYTES % (AUTO) 27.3 % (20.0-44.0); MEAN CORPUSCULAR HEMOGLOBIN 30 PG (26.0-33.0); MEAN CORPUSCULAR HGB CONC 34 g/dl (31.0-36.0); MEAN CORPUSCULAR VOLUME 90 fL (80-96); MONOCYTES # (AUTO) 0.6 /CMM (0.1-1.30); MONOCYTES % (AUTO) 9.7 % (2.0-12.0); NEUTROPHILS # (AUTO) 3.5 /CMM (1.8-8.9); NEUTROPHILS % (AUTO) 59.6 % (43.0-81.0); PLATELET COUNT (AUTO) 165 /CMM (150-450); RDW COEFFICIENT OF VARIATION 13.4 (11.5-15.0); RED BLOOD CELL COUNT(AUTO) 3.87 MIL/uL (4.5-6.0); WHITE BLOOD COUNT (AUTO) 5.9 K/uL (4.3-11.0)
[2016-10-31 06:34] LABS: ALANINE AMINOTRANSFERASE 19 U/L (12-78); ALBUMIN 2.6 g/dL (3.4-5.0); ALKALINE PHOSPHATASE 103 U/L (46-116); ASPARTATE AMINOTRANSFERASE 17 U/L (15-37); BILIRUBIN,TOTAL 0.8 mg/dL (0.2-1.0); CALCIUM, SERUM 8.1 mg/dL (8.5-10.1); CARBON DIOXIDE 31 mmol/L (21-32); CHLORIDE 108 mmol/L (98-107); CREATININE 0.7 mg/dL (0.6-1.3); GLUCOSE 97 mg/dL (74-106); MAGNESIUM 1.5 mg/dL (1.8-2.4); PHOSPHORUS 3.1 mg/dL (2.5-4.9); POTASSIUM 3.6 mmol/L (3.5-5.1); SODIUM SERUM 145 mmol/L (136-145); TOTAL PROTEIN, SERUM 5.9 g/dL (6.4-8.2); UREA NITROGEN, BLOOD 9 mg/dL (7-18)
[2016-10-31 06:41] LABS: CHOLESTEROL 125 mg/dL (<200); HDL CHOLESTEROL 42 mg/dL (40-60); LDL 64 mg/dL (0-99); THYROID STIMULATING HORMONE 1.743 uIU/mL (0.358-3.74); TRIGLYCERIDES 46 mg/dL (30-150)
--- NOTE | 2016-10-31 06:54 | NUR ---
RN NOTE. PT PULLING OUT IV CANNULA.AND OXYGEN. MAGDY SOFT WRIST RESTRAINT INITIATED.
[2016-10-31] MEDS: DONEPEZIL 5 MG TABLET PO SCH (10:11)
[2016-10-31] MEDS: ASPIRIN EC 325 MG TABLET.DR PO SCH (10:12)
[2016-10-31] MEDS: METFORMIN 500 MG TABLET PO SCH ×2 (10:12→16:18)
[2016-10-31] MEDS: ATORVASTATIN 10 MG TABLET PO SCH (10:12)
[2016-10-31] MEDS: MEMANTINE HCL 5 MG TABLET PO SCH ×2 (10:13→16:18)
[2016-10-31] MEDS: PANTOPRAZOLE 40 MG TABLET.DR PO SCH (10:28)
[2016-10-31] MEDS: Magnesium 1GM/D5W 100ML PREMIX 100 ML IV SCH ×2 (13:02→14:23)
[2016-10-31] MEDS ORDERED: SECONDARY IV SET 1 EA INFUS.SET MC ONE (13:04)
[2016-10-31] MEDS: BRIMONIDINE TARTRATE OPHT SOLN 5 ML BOTTLE EACHEYE SCH ×2 (14:23→16:19)
[2016-10-31] MEDS: QUETIAPINE FUMARATE 100 MG TABLET PO SCH (18:46)
[2016-10-31] MEDS: DIVALPROEX SODIUM 125 MG CAP.SPRINK PO SCH (18:47)
[2016-11-01] VITALS: BP 119/63
[2016-11-01 04:00] VITALS: BP 129/61
[2016-11-01] MEDS: IV NS 0.9% 1,000 ML IV PRN (06:35)
--- NOTE | 2016-11-01 07:00 | NUR ---
RN INITIAL NOTES RECEIVED PT IN BED, NON VERBAL, OPENS EYES TO NAME, UNABLE TO FOLLOW COMMANDS, PT IS ON 1L NC, SATING WELL, NO S/S OF RESP.DISTRESS OR SOB NOTED AT THIS TIME, PT IS ON TELE MONITOR SHOWING SB @ 55 BPM, NO S/S OF DISTRESS OR DISCOMFORT AT THIS TIME, PT HAS F/C DRAINING WELL TO GRAVITY, PT HAS KASH #18G, NS @75ML/HR, L HAND # 18G,SL, C/D/I/PATENT, FLUSHING WELL, NO S/S OF INFECTION/ INFILTRATION NOTED AT THIS TIME, PT HAS BILATERAL WRIST RESTRAINTS IN PLACE, CHECKED AND RELEASE, SKIN CHECK COMPLETED, ALL SAFETY MEASURES IN PLACE AT ALL TIMES, CALL LIGHT WITHIN EASY REACH, WILL MONITOR PT CLOSELY FOR CHANGES
[2016-11-01 08:00] VITALS: BP 129/58
[2016-11-01] MEDS: MEMANTINE HCL 5 MG TABLET PO SCH ×2 (08:18→17:56)
[2016-11-01] MEDS: DIVALPROEX SODIUM 125 MG CAP.SPRINK PO SCH ×3 (08:18→17:56)
[2016-11-01] MEDS: BRIMONIDINE TARTRATE OPHT SOLN 5 ML BOTTLE EACHEYE SCH ×2 (08:18→17:56)
[2016-11-01] MEDS: METFORMIN 500 MG TABLET PO SCH ×2 (08:18→17:56)
[2016-11-01] MEDS: ASPIRIN EC 325 MG TABLET.DR PO SCH (08:19)
[2016-11-01] MEDS: DONEPEZIL 5 MG TABLET PO SCH (08:19)
[2016-11-01] MEDS: QUETIAPINE FUMARATE 100 MG TABLET PO SCH ×3 (08:19→17:56)
[2016-11-01] MEDS: PANTOPRAZOLE 40 MG TABLET.DR PO SCH (08:19)
[2016-11-01 08:37] LABS: CALCIUM, SERUM 8.1 mg/dL (8.5-10.1); CARBON DIOXIDE 32 mmol/L (21-32); CHLORIDE 108 mmol/L (98-107); CREATININE 0.8 mg/dL (0.6-1.3); GLUCOSE 102 mg/dL (74-106); POTASSIUM 4.1 mmol/L (3.5-5.1); SODIUM SERUM 144 mmol/L (136-145); UREA NITROGEN, BLOOD 9 mg/dL (7-18)
[2016-11-01 08:39] LABS: BASOPHILS % (AUTO) 0.5 % (0.0-2.0); EOSINOPHILS # (AUTO) 0.2 /CMM (0.0-0.7); EOSINOPHILS % (AUTO) 3.1 % (0.0-6.0); HEMATOCRIT 35 % (39-51); HEMOGLOBIN 11.6 g/dL (13.5-17.5); LYMPHOCYTES % (AUTO) 30.5 % (20.0-44.0); MEAN CORPUSCULAR HEMOGLOBIN 30 PG (26.0-33.0); MEAN CORPUSCULAR HGB CONC 33 g/dl (31.0-36.0); MEAN CORPUSCULAR VOLUME 90 fL (80-96); MONOCYTES # (AUTO) 0.5 /CMM (0.1-1.30); MONOCYTES % (AUTO) 8.4 % (2.0-12.0); NEUTROPHILS # (AUTO) 3.7 /CMM (1.8-8.9); NEUTROPHILS % (AUTO) 57.5 % (43.0-81.0); PLATELET COUNT (AUTO) 171 /CMM (150-450); RDW COEFFICIENT OF VARIATION 13.5 (11.5-15.0); RED BLOOD CELL COUNT(AUTO) 3.88 MIL/uL (4.5-6.0); WHITE BLOOD COUNT (AUTO) 6.5 K/uL (4.3-11.0)
[2016-11-01 08:43] LABS: ALANINE AMINOTRANSFERASE 18 U/L (12-78); ALBUMIN 2.5 g/dL (3.4-5.0); ALKALINE PHOSPHATASE 103 U/L (46-116); ASPARTATE AMINOTRANSFERASE 12 U/L (15-37); BILIRUBIN,TOTAL 0.9 mg/dL (0.2-1.0); MAGNESIUM 1.6 mg/dL (1.8-2.4); PHOSPHORUS 3.2 mg/dL (2.5-4.9); TOTAL PROTEIN, SERUM 5.7 g/dL (6.4-8.2)
[2016-11-01] MEDS ORDERED: IV SET PRIMARY PUMP SET 1 EA INFUS.SET MC ONE ×2 (11:44→23:30)
[2016-11-01] MEDS: Magnesium 1GM/D5W 100ML PREMIX 100 ML IV SCH ×2 (12:12→13:41)
[2016-11-01 16:00] VITALS: BP 93/34
[2016-11-01 16:41] VITALS: BP 94/34
--- NOTE | 2016-11-01 18:36 | NUR ---
RN CLOSING NOTES PT REMAINED STABLE DURING SHIFT, ALL MEDICATIONS AND ORDERS CARRIED OUT, IV REMAINS C/D/I/PATENT, F/C DRAINING WELL, ALL TREATMENTS CARRIED OUT, PT KEPT CLEAN AND DRY, PT REPOSITIONED Q2H/PRN, ALL SAFETY MEASURES IN PLACE AT ALL TIMES, CALL LIGHT WITHIN EASY REACH, REPORT WILL BE GIVEN TO PM RN FOR KARRIE
[2016-11-01 20:00] VITALS: BP_SYST 134; BP_SYST 92; BP_DIAS 51
--- NOTE | 2016-11-01 20:00 | NUR ---
RN: HR IN THE 50'S . PT IS ASYMPTOMATIC AND HEMODYNAMICALLY STABLE. WILL CONT TO MONITOR. SON AT BEDSIDE , UPDATED ON CURRENT CONDITION.
[2016-11-01] MEDS ORDERED: SECONDARY IV SET 1 EA INFUS.SET MC ONE (20:46)
[2016-11-02 04:00] VITALS: BP 129/62
--- NOTE | 2016-11-02 05:30 | NUR ---
RN: REPORT GIVEN TO [facility] FOR CONTINUATION OF CARE. PT IN BED SLEEPING BUT AROUSABLE TO TOUCH . RESTRAINTS IN PLACE . SKIN INTACT. FC AND IV'S INTACT AND PATENT. HOB ELEVATED.
--- NOTE | 2016-11-02 05:36 | NUR ---
MS RN NOTES CONTUITY OF CARE RECEIVED FROM ASHLEE
--- NOTE | 2016-11-02 07:00 | NUR ---
RN INITIAL NOTES RECEIVED PT IN BED, NON VERBAL, OPENS EYES TO NAME, UNABLE TO FOLLOW COMMANDS, PT IS ON 1L NC, SATING WELL, NO S/S OF RESP.DISTRESS OR SOB NOTED AT THIS TIME, PT IS ON TELE MONITOR SHOWING SB, NO S/S OF DISTRESS OR DISCOMFORT AT THIS TIME, PT HAS F/C DRAINING WELL TO GRAVITY PINK COLOR, PT HAS KASH #18G, SL, L HAND # 18G,SL, C/D/I/PATENT, FLUSHING WELL, NO S/S OF INFECTION/ INFILTRATION NOTED AT THIS TIME, PT HAS BILATERAL WRIST RESTRAINTS IN PLACE, CHECKED AND RELEASE, SKIN CHECK COMPLETED, ALL SAFETY MEASURES IN PLACE AT ALL TIMES, CALL LIGHT WITHIN EASY REACH, WILL MONITOR PT CLOSELY FOR CHANGES
--- NOTE | 2016-11-02 07:00 | NUR ---
MS RN CLOSING NOTES NO SIGNIFICANT CHANGES OVERNIGHT. NO RESPIRATORY DISTRESS NOTED. RESPIRATIONS EVEN AND UNLABORED. KEPT CLEAN AND DRY. TURNED AND REPOSITIONED Q2 AND PRN. WITH F/C DRAINING BY GRAVITY, NOTED WITH PINK URINE, PATIENT ATTEMPTING TO REMOVE F/C. PATIENT WITH BILATERAL WRIST RESTRAINTS, CIRCULATION CHECKED. SIDE RAILS UP AND LOCKED. BED KEPT AT LOWEST POSITION. CALL LIGHT KEPT WITHIN EASY REACH. WILL ENDORSE CONTINUITY OF CARE TO AM NURSE.
[2016-11-02 07:05] LABS: CALCIUM, SERUM 8.2 mg/dL (8.5-10.1); CARBON DIOXIDE 31 mmol/L (21-32); CHLORIDE 108 mmol/L (98-107); CREATININE 0.8 mg/dL (0.6-1.3); GLUCOSE 87 mg/dL (74-106); MAGNESIUM 1.7 mg/dL (1.8-2.4); SODIUM SERUM 145 mmol/L (136-145); UREA NITROGEN, BLOOD 9 mg/dL (7-18)
[2016-11-02 08:00] VITALS: BP 122/61
[2016-11-02] MEDS: MEMANTINE HCL 5 MG TABLET PO SCH ×2 (08:05→17:10)
[2016-11-02] MEDS: ASPIRIN EC 325 MG TABLET.DR PO SCH (08:05)
[2016-11-02] MEDS: QUETIAPINE FUMARATE 100 MG TABLET PO SCH ×3 (08:05→17:10)
[2016-11-02] MEDS: DIVALPROEX SODIUM 125 MG CAP.SPRINK PO SCH ×3 (08:05→17:11)
[2016-11-02] MEDS: DONEPEZIL 5 MG TABLET PO SCH (08:06)
[2016-11-02] MEDS: BRIMONIDINE TARTRATE OPHT SOLN 5 ML BOTTLE EACHEYE SCH ×2 (08:06→17:11)
[2016-11-02] MEDS: PANTOPRAZOLE 40 MG TABLET.DR PO SCH (08:06)
[2016-11-02] MEDS: METFORMIN 500 MG TABLET PO SCH ×2 (08:06→17:10)
[2016-11-02] MEDS: Magnesium 1GM/D5W 100ML PREMIX 100 ML IV SCH ×2 (09:16→09:58)
[2016-11-02 20:00] VITALS: BP 100/47
--- NOTE | 2016-11-02 20:30 | NUR ---
RN INITIAL NOTES RECEIVED PT IN BED, NON VERBAL, OPENS EYES TO NAME, UNABLE TO FOLLOW COMMANDS, PT IS ON 1L NC, SATING WELL, NO S/S OF RESP.DISTRESS OR SOB NOTED AT THIS TIME, PT IS ON TELE MONITOR SHOWING SB, NO S/S OF DISTRESS OR DISCOMFORT AT THIS TIME, PT HAS F/C DRAINING WELL TO GRAVITY PINK COLOR, PT HAS KASH #18G, SL, L HAND # 18G,SL, C/D/I/PATENT, FLUSHING WELL, NO S/S OF INFECTION/ INFILTRATION NOTED AT THIS TIME, PT HAS BILATERAL WRIST RESTRAINTS IN PLACE, CHECKED AND RELEASE, SKIN CHECK COMPLETED, ALL SAFETY MEASURES IN PLACE AT ALL TIMES, CALL
[2016-11-02 22:00] VITALS: BP 100/47
[2016-11-03 04:00] VITALS: BP 129/64
[2016-11-03 06:56] LABS: CALCIUM, SERUM 8.3 mg/dL (8.5-10.1); CARBON DIOXIDE 31 mmol/L (21-32); CHLORIDE 107 mmol/L (98-107); CREATININE 0.7 mg/dL (0.6-1.3); GLUCOSE 86 mg/dL (74-106); POTASSIUM 4.2 mmol/L (3.5-5.1); SODIUM SERUM 143 mmol/L (136-145); UREA NITROGEN, BLOOD 10 mg/dL (7-18)
--- NOTE | 2016-11-03 07:44 | NUR ---
MS RN INITIAL NOTES RECEIVED PT IN BED, PT RESPONSE BY OPENING EYES TO NAME, PT IS ON 1L NC, SATING WELL, NO S/S OF RESP.DISTRESS OR SOB NOTED AT THIS TIME, PT IS ON TELE MONITOR SHOWING SR, NO S/S OF DISTRESS OR DISCOMFORT AT THIS TIME, PT HAS F/C DRAINING WELL TO GRAVITY PINK COLOR, PT HAS KASH #18G, SL, L HAND # 18G,SL, C/D/I/PATENT, FLUSHING WELL, NO S/S OF INFECTION/ INFILTRATION NOTED AT THIS TIME, PT HAS BILATERAL WRIST RESTRAINTS IN PLACE, CHECKED AND RELEASE, SKIN CHECK COMPLETED, ALL SAFETY MEASURES IN PLACE AT ALL TIMES, CALL
[2016-11-03 08:00] VITALS: BP 138/62
[2016-11-03] MEDS: MEMANTINE HCL 5 MG TABLET PO SCH ×3 (08:46→17:00)
[2016-11-03] MEDS: DONEPEZIL 5 MG TABLET PO SCH (08:46)
[2016-11-03] MEDS: PANTOPRAZOLE 40 MG TABLET.DR PO SCH (08:46)
[2016-11-03] MEDS: METFORMIN 500 MG TABLET PO SCH ×3 (08:46→17:00)
[2016-11-03] MEDS: ASPIRIN EC 325 MG TABLET.DR PO SCH (08:46)
[2016-11-03] MEDS: DIVALPROEX SODIUM 125 MG CAP.SPRINK PO SCH ×4 (08:46→17:00)
[2016-11-03] MEDS: QUETIAPINE FUMARATE 100 MG TABLET PO SCH ×4 (08:46→17:00)
[2016-11-03] MEDS: BRIMONIDINE TARTRATE OPHT SOLN 5 ML BOTTLE EACHEYE SCH ×2 (08:47→16:59)
--- NOTE | 2016-11-03 11:00 | NUR ---
MS RN NOTE PER DR. JONES NURSING STAFF OK TO REMOVE BOTH PERIPHERAL IV PENDING DISCHARGE.
[2016-11-03 11:06] VITALS: BP 138/62
[2016-11-03] MEDS ORDERED: MAGNESIUM OXIDE 400 MG TABLET PO SCH (11:30)
[2016-11-03] MEDS ORDERED: Magnesium 1GM/D5W 100ML PREMIX 100 ML IV SCH (11:30)
--- NOTE | 2016-11-03 13:46 | NUR ---
MS RN NOTE BLOOD NOTED IN JACOBSON CATHETER TUBE NURSING STAFF CONTACTED DR. CAMPBELL IN REGARDS TO NEW FINDING
--- NOTE | 2016-11-03 14:00 | NUR ---
U/A AND UC ORDER DUE TO MODERATE AMOUNT OF BLOOD NOTED IN PATIENTS JACOBSON CATHETER. NURSING STAFF AWAITING MD RETURN PHONE CALL. PT IN ROOM PATIENT COMPLAINTS OF PAIN/ DISCOMFORT . NURSING STAFF WILL CONTINUE TO FOLLOW
[2016-11-03 16:00] VITALS: BP 105/52
--- NOTE | 2016-11-03 17:54 | NUR ---
MS RN NOTE PT REFUSED PO MEDICATION FOR PM 1700 . PT TAKES MEDICATION CRUSHED WITH FOOD . PT REFUSED TO EAT PM DINNER AT THIS TIME. NURSING STAFF WILL CONTINUE TO FOLLOW AND ENDORSE TO PM SHIFT
--- NOTE | 2016-11-03 18:53 | NUR ---
RN CLOSING NOTES PT REMAINED STABLE DURING SHIFT, ALL MEDICATIONS AND ORDERS CARRIED OUT, IV D/C PENDING DISCHARGE IN THE AM , F/C DRAINING WELL BLOOD NOTED IN F/C REPORTED TO MD , ALL TREATMENTS CARRIED OUT, PT KEPT CLEAN AND DRY, PT REPOSITIONED Q2H/PRN, ALL SAFETY MEASURES IN PLACE AT ALL TIMES, CALL LIGHT WITHIN EASY REACH, REPORT WILL BE GIVEN TO PM RN FOR KARRIE
[2016-11-03 20:00] VITALS: BP 102/52
[2016-11-04 01:43] LABS: APPEARANCE,URINE CLOUDY (CLEAR); BILIRUBIN,URINE NEGATIVE (NEGATIVE); BLOOD, URINE 3+ Ery/uL (NEGATIVE); COLOR,URINE BROWN (YELLOW); KETONES,URINE TRACE (NEGATIVE); LEUKOCYTE ESTERASE ,URINE TRACE (NEGATIVE); NITRITE, URINE NEGATIVE (NEGATIVE); PH,URINE 5.5 (5.0-8.0); PROTEIN,URINE 2+ mg/dl (NEGATIVE); UGLUCOSE NEGATIVE (NEGATIVE)
[2016-11-04 01:51] LABS: BACTERIA,URINE Rare /HPF (None Seen); RBC,URINE 81-100 /HPF (0-2); SQUAMOUS EPITHELIAL CELL,UR Rare /HPF (None Seen)
[2016-11-04 01:52] LABS: MUCUS,URINE Rare /LPF (None Seen)
[2016-11-04 04:00] VITALS: BP 138/59
[2016-11-04 06:59] LABS: CALCIUM, SERUM 8.4 mg/dL (8.5-10.1); CARBON DIOXIDE 31 mmol/L (21-32); CHLORIDE 105 mmol/L (98-107); CREATININE 0.8 mg/dL (0.6-1.3); GLUCOSE 76 mg/dL (74-106); POTASSIUM 4.1 mmol/L (3.5-5.1); SODIUM SERUM 141 mmol/L (136-145); UREA NITROGEN, BLOOD 10 mg/dL (7-18)
[2016-11-04] MEDS: PANTOPRAZOLE 40 MG TABLET.DR PO SCH ×2 (07:30→11:29)
[2016-11-04 08:00] VITALS: BP 131/57
--- NOTE | 2016-11-04 08:03 | NUR ---
MS RN INITIAL NOTES RECEIVED PT IN BED, PT RESPONSE BY OPENING EYES TO NAME, PT IS ON 1L NC, SATING WELL, NO S/S OF RESP.DISTRESS OR SOB NOTED AT THIS TIME, PT IS ON TELE MONITOR SHOWING SR, NO S/S OF DISTRESS OR DISCOMFORT AT THIS TIME, PT HAS F/C DRAINING WELL TO GRAVITY YELLOW NO BLOOD PRESENT AT THIS TIME , PT HAS BILATERAL WRIST RESTRAINTS IN PLACE, CHECKED AND RELEASE, SKIN CHECK COMPLETED, ALL SAFETY MEASURES IN PLACE AT ALL TIMES, CALL
[2016-11-04] MEDS: QUETIAPINE FUMARATE 100 MG TABLET PO SCH ×4 (09:00→17:31)
[2016-11-04] MEDS: DONEPEZIL 5 MG TABLET PO SCH ×2 (09:00→11:26)
[2016-11-04] MEDS: MEMANTINE HCL 5 MG TABLET PO SCH ×3 (09:00→17:30)
[2016-11-04] MEDS: ASPIRIN EC 325 MG TABLET.DR PO SCH (10:40)
[2016-11-04] MEDS: METFORMIN 500 MG TABLET PO SCH ×2 (10:40→17:31)
[2016-11-04] MEDS: DIVALPROEX SODIUM 125 MG CAP.SPRINK PO SCH ×3 (10:40→17:31)
[2016-11-04] MEDS: BRIMONIDINE TARTRATE OPHT SOLN 5 ML BOTTLE EACHEYE SCH ×2 (10:41→17:30)
--- NOTE | 2016-11-04 11:05 | NUR ---
MS RN NOTE NOT ALL PT MEDICATIONS ADMINISTERED DUE TO PATIENT REFUSING ADDITION FOOD ( PUREE DIET AND CRUSHED MEDICATION) PT IS ALSO LETHARGIC AND CONFUSED. MEDICAL STAFF WILL CONTINUE TO FOLLOW THE PATIENTS PROGRESS THE IMPORTANCE OF MEDICATION EXPLAINED UNDERSTANDING NOT ACHIEVED .
--- NOTE | 2016-11-04 11:30 | NUR ---
RN NOTE RN ABLE TO ADMINISTER ALL AM MEDICATION WITHOUT ISSUE. PT STABLE NURSING WILL CONTINUE TO FOLLOW THE PATIENT PROGRESS
[2016-11-04 16:00] VITALS: BP_SYST 100; BP_SYST 111; BP_SYST 96; BP_DIAS 49; BP_DIAS 59; BP_DIAS 60
--- NOTE | 2016-11-04 18:39 | NUR ---
RN CLOSING NOTES PT REMAINED STABLE DURING SHIFT,MEDICATIONS AND ORDERS CARRIED OUT, IV NON PRESENT PENDING DISCHARGE IN THE AM , F/C DRAINING WELL YELLOW URINE PRESENT, ALL TREATMENTS CARRIED OUT, PT KEPT CLEAN AND DRY, PT REPOSITIONED Q2H/PRN, ALL SAFETY MEASURES IN PLACE AT ALL TIMES, CALL LIGHT WITHIN EASY REACH, REPORT WILL BE GIVEN TO PM RN FOR KARRIE
[2016-11-04 20:00] VITALS: BP 87/41
--- NOTE | 2016-11-04 20:00 | NUR ---
MS1 RN NOTE PT IN BED ASLEEP, AROUSABLE .A/O X 1 CONFUSED. NO DISTRESS OR DISCOMFORT NOTED. DENIES PAIN. PT HAS ON IV ACCESS. PER DAY SHIFT NURSE AWARE. PT REMAIN ON SOFT WRIST RESTRAINTS. REPOSITION HIM Q2H KEPT HIM DRY AND CLEAN. ALL NEEDS ATTENDED.
[2016-11-04 21:00] VITALS: BP 99/52
[2016-11-05] VITALS (9 sets, daily range): BP systolic 86–128; BP diastolic 42–59
--- NOTE | 2016-11-05 06:45 | NUR ---
MS1 RN NOTE PT IN BED ASLEEP,AROUSABLE. NO DISTRESS OR DISCOMFORT NOTED. DENIES PAIN. RESTRAINTS ARE OFF AT THIS TIME. PT IS CALM. .SIDE RAILS UP X 2 AND CALL LIGHT WITHIN REACH. WILL ENDORSE TO DAY SHIFT NURSE FOR CONTINUE TO CARE.
[2016-11-05 07:13] LABS: CALCIUM, SERUM 8.5 mg/dL (8.5-10.1); CARBON DIOXIDE 29 mmol/L (21-32); CHLORIDE 105 mmol/L (98-107); CREATININE 0.8 mg/dL (0.6-1.3); GLUCOSE 82 mg/dL (74-106); POTASSIUM 3.9 mmol/L (3.5-5.1); SODIUM SERUM 141 mmol/L (136-145); UREA NITROGEN, BLOOD 11 mg/dL (7-18)
--- NOTE | 2016-11-05 08:00 | NUR ---
MS RN INITIAL NOTES RECEIVED PT IN BED, PT RESPONSE BY OPENING EYES TO NAME, PT IS ON 1L NC, SATING WELL, NO S/S OF RESP.DISTRESS OR SOB NOTED AT THIS TIME, PT IS ON TELE MONITOR SHOWING SR, NO S/S OF DISTRESS OR DISCOMFORT AT THIS TIME, PT HAS F/C DRAINING WELL TO GRAVITY YELLOW NO BLOOD PRESENT AT THIS TIME , PT HAS BILATERAL WRIST RESTRAINTS IN PLACE (CURRENTLY OFF TO ALLOW MOBILITY , CHECKED AND RELEASE, SKIN CHECK COMPLETED NO ISSUES NOTED , ALL SAFETY MEASURES IN PLACE AT ALL TIMES CALL, POSSIBLE DISCHARGE TODAY
[2016-11-05] MEDS: ASPIRIN EC 325 MG TABLET.DR PO SCH (08:46)
[2016-11-05] MEDS: QUETIAPINE FUMARATE 100 MG TABLET PO SCH ×3 (08:46→17:00)
[2016-11-05] MEDS: MEMANTINE HCL 5 MG TABLET PO SCH ×2 (08:46→17:00)
[2016-11-05] MEDS: DONEPEZIL 5 MG TABLET PO SCH (08:46)
[2016-11-05] MEDS: METFORMIN 500 MG TABLET PO SCH ×2 (08:46→17:00)
[2016-11-05] MEDS: PANTOPRAZOLE 40 MG TABLET.DR PO SCH (08:46)
[2016-11-05] MEDS: DIVALPROEX SODIUM 125 MG CAP.SPRINK PO SCH ×3 (08:47→17:00)
[2016-11-05] MEDS: BRIMONIDINE TARTRATE OPHT SOLN 5 ML BOTTLE EACHEYE SCH ×2 (08:47→17:57)
--- NOTE | 2016-11-05 10:10 | NUR ---
MS RN NOTE: RECEIVED PATIENT FROM [facility]HEL VIA BED. PATIENT A/OX 1, BREATHING EVEN AND UNLABORED ON ROOM AIR. NO SOB, NO DISTRESS NOTED AT THIS TIME. PATIENT REMAINS COMFORTABLE, ALL NEEDS ATTENDED TO, SAFETY MEASURES IN PLACE, WILL CONTINUE TO MONITOR.
--- NOTE | 2016-11-05 10:15 | NUR ---
RN NOTE PT TRANSFERRED TO MED SURG FLOOR 2 STABLE VITALS WNL , PATIENT ALERT AND ORIENTED NOTIFIED PATIENTS ABOUT TRANSFER SHE VERBALIZED UNDERSTANDING. REPORT GIVEN TO GROCERY CLERK
--- NOTE | 2016-11-05 10:15 | NUR ---
MS RN NOTE: PATIENT'S BLOOD PRESSURE VERY LOW, READING 85/43 HIGHEST. PATIENT LETHARGIC, BUT AROUSABLE. WILL CONTACT MD FOR FURTHER ORDERS.
--- NOTE | 2016-11-05 10:45 | NUR ---
RN NOTE: NEW IV INSERTED ON LEFT FOREARM, 20 GAUGE
[2016-11-05] MEDS ORDERED: IV SET PRIMARY PUMP SET 1 EA INFUS.SET MC ONE ×3 (10:58→19:40)
[2016-11-05 11:00] LABS: BASOPHILS % (AUTO) 0.5 % (0.0-2.0); EOSINOPHILS # (AUTO) 0.3 /CMM (0.0-0.7); EOSINOPHILS % (AUTO) 4.6 % (0.0-6.0); HEMATOCRIT 36 % (39-51); HEMOGLOBIN 12.1 g/dL (13.5-17.5); LYMPHOCYTES # (AUTO) 2.2 /CMM (0.8-4.8); LYMPHOCYTES % (AUTO) 38.3 % (20.0-44.0); MEAN CORPUSCULAR HEMOGLOBIN 30 PG (26.0-33.0); MEAN CORPUSCULAR HGB CONC 33 g/dl (31.0-36.0); MEAN CORPUSCULAR VOLUME 90 fL (80-96); MONOCYTES # (AUTO) 0.6 /CMM (0.1-1.30); MONOCYTES % (AUTO) 9.9 % (2.0-12.0); NEUTROPHILS # (AUTO) 2.7 /CMM (1.8-8.9); NEUTROPHILS % (AUTO) 46.7 % (43.0-81.0); PLATELET COUNT (AUTO) 179 /CMM (150-450); RDW COEFFICIENT OF VARIATION 13.6 (11.5-15.0); RED BLOOD CELL COUNT(AUTO) 4.05 MIL/uL (4.5-6.0); WHITE BLOOD COUNT (AUTO) 5.7 K/uL (4.3-11.0)
[2016-11-05] MEDS ORDERED: IV NS 0.9% 1,000 ML BAG IV ONE ×3 (11:00→17:00)
--- NOTE | 2016-11-05 11:00 | NUR ---
MS RN NOTE: PER SHAE RIVERA, ORDER CBC AND BOLUS PATIENT 500 ML NS. ORDERS PLACED, WILL IMPLEMENT.
--- NOTE | 2016-11-05 12:30 | NUR ---
MS RN NOTE: PATIENT IS MORE AWAKE AND EATING LUNCH. BLOOD PRESSURE HAS SLOWLY INCREASED TO 108/56. WILL CONTINUE TO MONITOR.
--- NOTE | 2016-11-05 13:00 | NUR ---
MS RN NOTE: PATIENTS BILATERAL SOFT WRIST RESTRAINTS REMOVED. PATIENT REMAINS CALM AT THIS TIME. NO PULLING OF IV LINE. NO COMPLICATIONS NOTED, WILL CONTINUE TO MONITOR.
--- NOTE | 2016-11-05 14:15 | NUR ---
MS RN NOTE: PATIENT'S BLOOD PRESSURE IS BACK DOWN TO 87/63. DR. SHAE RIVERA NOTIFIED, MD ORDERED ANOTHER 500 ML BOLUS. ORDER PLACED, WILL IMPLEMENT.
[2016-11-05] MEDS ORDERED: IV NS 0.9% 500 ML IV ONE ×3 (14:30→17:00)
--- NOTE | 2016-11-05 17:30 | NUR ---
RACHEL INITIAL NOTE- RECEIVED PT FROM MS 2. PT A/O X1, LETHARGIC. ON 1L, RESPIRATIONS EVEN AND UNLABORED, NO SOB OR DISTRESS PRESENT. TELE MONITOR REVEALS SINUS YANNI, HR= 57. LFA 20G RUNNING NS BOLUS. JACOBSON CATHETER PRESENT DRAINING TO GRAVITY CLEAR, YELLOW URINE. AWAITING DOPAMINE GTT FROM PHARMACY. SAFETY MEASURES TAKEN: BED LOCKED AND IN LOW POSITION, SIDE RAILS UP X2, BED ALARM ON AND CALL LIGHT WITHIN REACH, WILL CONTINUE TO MONITOR.
--- NOTE | 2016-11-05 17:30 | NUR ---
MS RN NOTE: PER SHAE RIVERA, ORDER ANOTHER 500 ML NS BOLUS D/T LOW BLOOD PRESSURE. MD ALSO ORDERED TO TRANSFER PATIENT TO RACHEL AND START ON DOPAMINE DRIP WITH NO TITRATION. ORDERS PLACED, PATIENT PLACED ON TELE MONITOR, PORTABLE OXYGEN TANK PLACED ON BED. PATIENT TRANSFERRED TO RACHEL VIA BED, ALL BELONGINGS AND CHART SENT WITH PATIENT. REPORT GIVEN TO [place] FOR KARRIE.
[2016-11-05] MEDS ORDERED: DOPamine 400 MG in IV D5W 250 ML IV PRN (18:00)
--- NOTE | 2016-11-05 18:00 | NUR ---
RACHEL NOTE- PT'S 1700 & 1800 MEDS NON-ADMINISTERED. PT LETHARGIC. MEDS HELD FOR PATIENT SAFETY. WILL CONTINUE TO MONITOR. CALLED PHARMACY TO FOLLOW UP ON DOPAMINE GTT. PER PHARMACIST, THEY ARE AWARE OF ORDER AND WILL SEND BAG. WILL CONTINUE TO MONITOR.
--- NOTE | 2016-11-05 18:30 | NUR ---
RACHEL NOTE- 500 NS BOLUS COMPLETED. BP= 96/54, HR= 56. CALLED PHARMACY TO FOLLOW UP ON DOPAMINE GTT. PER PHARMACIST, THEY WILL SEND A TECH TO DELIVER DOPAMINE GTT. WILL CONTINUE TO MONITOR.
--- NOTE | 2016-11-05 19:30 | NUR ---
RACHEL RN NOTE: RECEIVED PATIENT FROM NURSE [place]. PATIENT A/OX 1, BREATHING EVEN AND UNLABORED ON O2 VIA NC @ 1LPM. NO SOB, NO DISTRESS NOTED AT THIS TIME. IV SITE PATENT AND INTACT, FLUSHED WITH NS, AWAITING DOPAMINE GTT TO BE DELIVERED FROM PHARMACY PATIENT LETHARGIC, ALL NEEDS ATTENDED TO, SAFETY MEASURES IN PLACE, BILATERAL SOFT WRIST RESTRAINTS IN PLACE, CHECKED FOR CIRCULATION, WILL CONTINUE TO MONITOR.
--- NOTE | 2016-11-05 20:00 | NUR ---
RN NOTES - DOPAMINE DRIP DOPAMINE DRIP INITIATED PRESCRIBED. DOSE AND DOSE RATE CALCULATED ON IV PUMP, VERIFIED WITH CHARGE NURSE ANGEL. WILL CONTINUE TO CLOSELY MONITOR
[2016-11-05] MEDS: MIDODRINE HCL (5MG) 5 MG TABLET PO SCH (23:00)
--- NOTE | 2016-11-05 23:37 | NUR ---
RN NOTES MIDODRINE NON-ADMINISTERED. PATIENT LETHARGIC, HIGH RISK FOR ASPIRATION.
[2016-11-06] VITALS (9 sets, daily range): BP systolic 89–118; BP diastolic 51–77
[2016-11-06] MEDS: ZOLPIDEM TARTRATE 5 MG TABLET PO PRN (00:58)
[2016-11-06 06:40] LABS: BASOPHILS % (AUTO) 0.4 % (0.0-2.0); EOSINOPHILS # (AUTO) 0.2 /CMM (0.0-0.7); EOSINOPHILS % (AUTO) 3.4 % (0.0-6.0); HEMATOCRIT 40 % (39-51); HEMOGLOBIN 13.2 g/dL (13.5-17.5); LYMPHOCYTES # (AUTO) 1.6 /CMM (0.8-4.8); MEAN CORPUSCULAR HEMOGLOBIN 30 PG (26.0-33.0); MEAN CORPUSCULAR HGB CONC 33 g/dl (31.0-36.0); MEAN CORPUSCULAR VOLUME 90 fL (80-96); MONOCYTES # (AUTO) 0.5 /CMM (0.1-1.30); MONOCYTES % (AUTO) 8.7 % (2.0-12.0); NEUTROPHILS # (AUTO) 3.7 /CMM (1.8-8.9); NEUTROPHILS % (AUTO) 61.5 % (43.0-81.0); PLATELET COUNT (AUTO) 182 /CMM (150-450); RDW COEFFICIENT OF VARIATION 13.4 (11.5-15.0); RED BLOOD CELL COUNT(AUTO) 4.42 MIL/uL (4.5-6.0); WHITE BLOOD COUNT (AUTO) 6.1 K/uL (4.3-11.0)
--- NOTE | 2016-11-06 06:53 | NUR ---
RN CLOSING NOTES PATIENT CONTINUES ON DOPAMINE DRIP, SYSTOLIC BLOOD PRESSURE MAINTAINED ABOVE 100 ORDERED. WILL ENDORSE THE PATIENT TO THE AM SHIFT NURSE FOR KARRIE
[2016-11-06 07:11] LABS: CALCIUM, SERUM 8.7 mg/dL (8.5-10.1); CARBON DIOXIDE 32 mmol/L (21-32); CHLORIDE 105 mmol/L (98-107); CREATININE 0.8 mg/dL (0.6-1.3); GLUCOSE 134 mg/dL (74-106); MAGNESIUM 1.4 mg/dL (1.8-2.4); PHOSPHORUS 2.7 mg/dL (2.5-4.9); SODIUM SERUM 142 mmol/L (136-145); UREA NITROGEN, BLOOD 10 mg/dL (7-18)
--- NOTE | 2016-11-06 07:16 | NUR ---
RN NOTES SPOKE TO PHARMACIST KEM REGARDING DOPAMINE DRIP DOSE RATE AND SETTINGS, VERIFIED PROPER DOSE RATE. DAY SHIFT NURSE MADE AWARE
[2016-11-06] MEDS ORDERED: DOPamine 400 MG in IV D5W 250 ML IV PRN (07:30)
--- NOTE | 2016-11-06 07:45 | NUR ---
RACHEL/RN - Notes Pt received in bed awake and alert x1. Does not follow commands. On bilateral soft wrist restraints, pt attempting to get out of bed and pulling/removing lines. Education provided to pt, but pt unable to comprehend. On tele reading SR 62. Guerin catheter intact draining urine to gravity. On Dopamine drip wit SBP kept >100. Safety and comfort measures in place. Will continue to monitor pt closely.
[2016-11-06] MEDS: QUETIAPINE FUMARATE 100 MG TABLET PO SCH ×3 (08:02→17:00)
[2016-11-06] MEDS: DONEPEZIL 5 MG TABLET PO SCH (08:02)
[2016-11-06] MEDS: METFORMIN 500 MG TABLET PO SCH ×2 (08:02→17:00)
[2016-11-06] MEDS: MEMANTINE HCL 5 MG TABLET PO SCH ×2 (08:03→17:00)
[2016-11-06] MEDS: ASPIRIN EC 325 MG TABLET.DR PO SCH (08:03)
[2016-11-06] MEDS: MIDODRINE HCL (5MG) 5 MG TABLET PO SCH ×3 (08:03→17:00)
[2016-11-06] MEDS: DIVALPROEX SODIUM 125 MG CAP.SPRINK PO SCH ×3 (08:03→17:00)
[2016-11-06] MEDS: PANTOPRAZOLE 40 MG TABLET.DR PO SCH (08:03)
--- NOTE | 2016-11-06 08:30 | NUR ---
RACHEL/RN - Notes Pt seen pulling out diaper and attempting to pull out Guerin catheter while on bilateral soft wrist restraints. Pt confused unable to follow commands. Pt repositioned. Pt able to swallow crushed medication and ate 100% of breakfast with aspiration precautions maintained.
[2016-11-06] MEDS: BRIMONIDINE TARTRATE OPHT SOLN 5 ML BOTTLE EACHEYE SCH ×2 (08:41→17:06)
[2016-11-06] MEDS ORDERED: IV SET PRIMARY PUMP SET 1 EA INFUS.SET MC ONE ×3 (10:35→18:03)
[2016-11-06] MEDS: Magnesium 1GM/D5W 100ML PREMIX 100 ML IV SCH ×4 (10:40→14:08)
--- NOTE | 2016-11-06 11:00 | NUR ---
RACHEL/RN - Notes Pt's sBP remains above 130. Per Dr Edgardo Banks, turn off Dopamine drip and monitor BP. If sBP falls below 100, restart Dopamine drip. Dopamine drip placed on hold, BNP 135/70 HR 70.
--- NOTE | 2016-11-06 12:55 | NUR ---
RACHEL/RN - Notes Pt's BP 84/52 HR 60. Dopamine drip restarted as ordered by Dr Edgardo Banks. Will continue to monitor.
[2016-11-06] MEDS ORDERED: FOSFOMYCIN TROMETHAMINE 3 G/PKT PACKET PO ONE (16:00)
[2016-11-06] MEDS: DOPamine 400 MG in IV D5W 250 ML IV PRN (17:12)
--- NOTE | 2016-11-06 17:25 | NUR ---
RACHEL/RN - Notes Pt noted to be lethargic and hypotensive with BP 76/39 during deep sleep. Pt arousable to deep stimuli and sBP goes up to low 90's. Dopamine drip at 5mcg/kg/min as ordered. Dr Edgardo Banks made aware of pt's lethargy and hypotension. Received order for 500 NS bolus, carried out. PO evening medications non administered at this time as pt is lethargic, at risk for aspiration.
[2016-11-06] MEDS ORDERED: IV NS 0.9% 500 ML IV ONE (17:30)
[2016-11-06] MEDS ORDERED: VANCOMYCIN 1 GM in IV D5W 250 ML IV ONE (18:00)
[2016-11-06] MEDS ORDERED: SECONDARY IV SET 1 EA INFUS.SET MC ONE ×2 (18:03→18:30)
[2016-11-06] MEDS ORDERED: IV NS 0.9% 250 ML IV ONE (18:03)
[2016-11-06] MEDS: PIPERACILLIN /TAZOBACTAM 3.375 G in IV D5W 50 ML IV SCH ×2 (18:18→23:44)
--- NOTE | 2016-11-06 18:50 | NUR ---
RACHEL/RN - Notes Pt's latest bp 107/48 HR 60, still lethargic and in deep sleep at this time. Pt arousable to deep stimuli.
[2016-11-06] MEDS ORDERED: HYDROCORTISONE SOD SUCCINATE 100 MG/2 ML VIAL ONE (23:38)
[2016-11-06] MEDS: HYDROCORTISONE SOD SUCCINATE 100 MG/2 ML VIAL IV SCH (23:44)
[2016-11-07] VITALS (7 sets, daily range): BP systolic 85–139; BP diastolic 49–79
[2016-11-07] MEDS: PIPERACILLIN /TAZOBACTAM 3.375 G in IV D5W 50 ML IV SCH ×3 (06:06→17:39)
[2016-11-07 06:31] LABS: BASOPHILS % (AUTO) 0.2 % (0.0-2.0); EOSINOPHILS % (AUTO) 0.7 % (0.0-6.0); HEMATOCRIT 39 % (39-51); HEMOGLOBIN 13.2 g/dL (13.5-17.5); LYMPHOCYTES # (AUTO) 0.9 /CMM (0.8-4.8); LYMPHOCYTES % (AUTO) 17.5 % (20.0-44.0); MEAN CORPUSCULAR HEMOGLOBIN 30 PG (26.0-33.0); MEAN CORPUSCULAR HGB CONC 34 g/dl (31.0-36.0); MEAN CORPUSCULAR VOLUME 89 fL (80-96); MONOCYTES # (AUTO) 0.1 /CMM (0.1-1.30); MONOCYTES % (AUTO) 1.7 % (2.0-12.0); NEUTROPHILS # (AUTO) 4.2 /CMM (1.8-8.9); NEUTROPHILS % (AUTO) 79.9 % (43.0-81.0); PLATELET COUNT (AUTO) 177 /CMM (150-450); RDW COEFFICIENT OF VARIATION 13.7 (11.5-15.0); RED BLOOD CELL COUNT(AUTO) 4.41 MIL/uL (4.5-6.0); WHITE BLOOD COUNT (AUTO) 5.2 K/uL (4.3-11.0)
[2016-11-07 07:03] LABS: CALCIUM, SERUM 8.8 mg/dL (8.5-10.1); CARBON DIOXIDE 29 mmol/L (21-32); CHLORIDE 107 mmol/L (98-107); CREATININE 0.9 mg/dL (0.6-1.3); GLUCOSE 209 mg/dL (74-106); MAGNESIUM 1.8 mg/dL (1.8-2.4); PHOSPHORUS 3.1 mg/dL (2.5-4.9); POTASSIUM 4.6 mmol/L (3.5-5.1); SODIUM SERUM 146 mmol/L (136-145); UREA NITROGEN, BLOOD 11 mg/dL (7-18)
--- NOTE | 2016-11-07 08:00 | NUR ---
TD/RN AM SHIFT INITIAL NOTES RECEIVED PT AWAKE SITTING IN BED. NO ACUTE CHANGE OF CONDITION NOTED, PT A/O X 1, NOTED NO GRIMACE OR RESTLESSNESS. PT ON 1L O2 VIA N/C SATURATING @ 96%, LUNG SOUNDS CLEAR. ON TELE WITH SINUS RHYTHM, HR 82. WITH ON GOING DOPAMINE INFUSION @ 5MCG/KG/MIN, BP MAINTAINING 113/74. IV SITE PATENT WITH NO S/S OF INFECTION. JACOBSON CATHETER NOTED WITH CLOUDY YELLOW URINE OUTPUT. BILATERAL WRIST RESTRAINTS, REMOVED TO BE CHECKED FOR CIRCULATION AND COMFORT, THEN PLACED BACK. PT IS COMFORTABLE AT THIS TIME. SCHEDULED AM MEDS TO BE GIVEN. CL WITHIN REACHED, SAFETY MAINTAINED AND ISOLATION OBSERVED.
[2016-11-07] MEDS: HYDROCORTISONE SOD SUCCINATE 100 MG/2 ML VIAL IV SCH ×3 (09:20→17:40)
[2016-11-07] MEDS: MEMANTINE HCL 5 MG TABLET PO SCH ×2 (09:21→17:41)
[2016-11-07] MEDS: MIDODRINE HCL (5MG) 5 MG TABLET PO SCH ×3 (09:22→17:41)
[2016-11-07] MEDS: DIVALPROEX SODIUM 125 MG CAP.SPRINK PO SCH ×3 (09:22→17:41)
[2016-11-07] MEDS: DONEPEZIL 5 MG TABLET PO SCH (09:22)
[2016-11-07] MEDS: QUETIAPINE FUMARATE 100 MG TABLET PO SCH ×3 (09:22→17:41)
[2016-11-07] MEDS: ASPIRIN EC 325 MG TABLET.DR PO SCH (09:22)
[2016-11-07] MEDS: PANTOPRAZOLE 40 MG TABLET.DR PO SCH (09:22)
[2016-11-07] MEDS: METFORMIN 500 MG TABLET PO SCH ×2 (09:22→17:41)
[2016-11-07] MEDS: BRIMONIDINE TARTRATE OPHT SOLN 5 ML BOTTLE EACHEYE SCH ×2 (11:33→17:40)
--- NOTE | 2016-11-07 12:00 | NUR ---
TD/RN NOON ROUNDS NO CHANGE OF CONDITION. MONITORING CONTINUED.
[2016-11-07] MEDS: DOPamine 400 MG in IV D5W 250 ML IV PRN (14:38)
--- NOTE | 2016-11-07 19:30 | NUR ---
RN NOTES 1930- received pt. asleep, arousable on bed with occasional eye opening; alert and oriented x 1; on nasal cannula 1L/min noted; on cardiac monitoring showing sinus bradycardia; on pureed diet as ordered; with mainline IVF DW250 cc + Dopamine 400 mg infusing at 5 mcg/min via right upper arm heplock; with bilateral wrist restraints are noted; with hampton catheter to urine bag in place; siderails x 2 are up; bed alarm is on; call light is within reach;
--- NOTE | 2016-11-07 19:40 | NUR ---
TD/RN AM SHIFT END NOTES NO ACUTE CHANGE OF CONDITION NOTED DURING THE SHIFT. ALL NEEDS MET. PT ENDORSED TO PM NURSE TO CONTINUE CARE. CL WITHIN REACHED AND SAFETY MAINTAINED.
[2016-11-08] VITALS: BP 104/45
--- NOTE | 2016-11-08 | NUR ---
CHANGE OF ASSIGNMENT REPORT , PT ON THE BED WITHOUT ANY DISTRESS . ON DOPAMINE DRIP AT 5 MCG , SHOWING SR WITH HR 78 ON TELE MONITOR. B/L SWR INTACT , RELEASED AND SKIN ASSESSED, WILL CONTINUE TO MONITOR .
[2016-11-08] MEDS: PIPERACILLIN /TAZOBACTAM 3.375 G in IV D5W 50 ML IV SCH ×5 (00:07→23:38)
[2016-11-08] MEDS ORDERED: IV NS 0.9% 250 ML IV ONE (03:00)
[2016-11-08 04:00] VITALS: BP 114/46
[2016-11-08 06:43] LABS: BASOPHILS % (AUTO) 0.1 % (0.0-2.0); HEMATOCRIT 42 % (39-51); HEMOGLOBIN 13.9 g/dL (13.5-17.5); LYMPHOCYTES # (AUTO) 1.4 /CMM (0.8-4.8); LYMPHOCYTES % (AUTO) 17.5 % (20.0-44.0); MEAN CORPUSCULAR HEMOGLOBIN 30 PG (26.0-33.0); MEAN CORPUSCULAR HGB CONC 33 g/dl (31.0-36.0); MEAN CORPUSCULAR VOLUME 91 fL (80-96); MONOCYTES # (AUTO) 0.4 /CMM (0.1-1.30); MONOCYTES % (AUTO) 4.5 % (2.0-12.0); NEUTROPHILS % (AUTO) 77.9 % (43.0-81.0); PLATELET COUNT (AUTO) 187 /CMM (150-450); RDW COEFFICIENT OF VARIATION 13.6 (11.5-15.0); RED BLOOD CELL COUNT(AUTO) 4.64 MIL/uL (4.5-6.0); WHITE BLOOD COUNT (AUTO) 7.8 K/uL (4.3-11.0)
[2016-11-08 07:00] LABS: CALCIUM, SERUM 9.1 mg/dL (8.5-10.1); CARBON DIOXIDE 29 mmol/L (21-32); CHLORIDE 104 mmol/L (98-107); GLUCOSE 158 mg/dL (74-106); MAGNESIUM 1.6 mg/dL (1.8-2.4); PHOSPHORUS 3.6 mg/dL (2.5-4.9); POTASSIUM 4.4 mmol/L (3.5-5.1); SODIUM SERUM 143 mmol/L (136-145); UREA NITROGEN, BLOOD 22 mg/dL (7-18)
--- NOTE | 2016-11-08 07:13 | NUR ---
RN EOS NOTE; PT REMAINED STABLE DURING THE SHIFT. NO ANY DISTRESS NOTED. ALL NEEDS ATTENDED PROMPTLY. WILL ENDORSE TO NEXT SHIFT RN FOR CONTINUITY OF CARE.
[2016-11-08 08:00] VITALS: BP_SYST 136; BP_SYST 152; BP_DIAS 60; BP_DIAS 62
[2016-11-08] MEDS: MEMANTINE HCL 5 MG TABLET PO SCH ×2 (08:47→17:44)
[2016-11-08] MEDS: METFORMIN 500 MG TABLET PO SCH ×2 (08:47→17:44)
[2016-11-08] MEDS: DIVALPROEX SODIUM 125 MG CAP.SPRINK PO SCH ×3 (08:47→17:43)
[2016-11-08] MEDS: QUETIAPINE FUMARATE 100 MG TABLET PO SCH ×3 (08:48→17:44)
[2016-11-08] MEDS: MIDODRINE HCL (5MG) 5 MG TABLET PO SCH ×3 (08:48→17:44)
[2016-11-08] MEDS: DONEPEZIL 5 MG TABLET PO SCH (08:54)
[2016-11-08] MEDS: ASPIRIN EC 325 MG TABLET.DR PO SCH (08:54)
[2016-11-08] MEDS: PANTOPRAZOLE 40 MG TABLET.DR PO SCH (08:54)
[2016-11-08] MEDS: BRIMONIDINE TARTRATE OPHT SOLN 5 ML BOTTLE EACHEYE SCH ×2 (09:04→17:45)
[2016-11-08] MEDS: HYDROCORTISONE SOD SUCCINATE 100 MG/2 ML VIAL IV SCH ×2 (09:28→12:08)
[2016-11-08 12:00] VITALS: BP_SYST 109; BP_SYST 96; BP_DIAS 42; BP_DIAS 68
[2016-11-08] MEDS ORDERED: IV NS 0.9% 1,000 ML IV PRN (13:30)
[2016-11-08] MEDS ORDERED: SECONDARY IV SET 1 EA INFUS.SET MC ONE (14:16)
[2016-11-08] MEDS: Magnesium 1GM/D5W 100ML PREMIX 100 ML IV SCH ×2 (14:20→15:20)
[2016-11-08 16:00] VITALS: BP_SYST 108; BP_SYST 130; BP_DIAS 55; BP_DIAS 69
--- NOTE | 2016-11-08 18:00 | NUR ---
RN NOTES RECEIVED PT FORM REGISTRY HEADING UP MACHINE OPERATOR , PT A/Ox1, RESPIRATION EVEN AND UNLABORED, PT TRIES TO PULL ON THIS IV SITES , SOFT PROTECTIVE DEVISE ON MAGDY WRIST. R UPPER ARM IV SITE CDI, CONTINUE TO MONITOR PT CLOSELY
--- NOTE | 2016-11-08 19:35 | NUR ---
MAINTENANCE AND UTILITIES SUPERVISOR INITIAL NOTE PT RECEIVED IN BED WITH BILATERAL SOFT WRIST RESTRAINTS. BED ALARM ON AND BED IN LOWEST POSITION, LOCKED. A/O X1 NON VERBAL. ON 2L OF O2 AND SATING WELL. TELE- SINUS RHYTHM 62. BILATERAL WRISTS ASSESSED WITH NO DISCOLORATION NOTED AND NO C/O OF PAIN OR DISCOMFORT NOTED. IV KASH INTACT AND FLUSHING WELL. JACOBSON CATHETER PATENT AND IN PLACE. ISOLATION PRECAUTIONS OBSERVED. WILL CONTINUE TO MONITOR.
[2016-11-08 20:00] VITALS: BP_SYST 110; BP_DIAS 46; BP_DIAS 76
[2016-11-08] MEDS: ZOLPIDEM TARTRATE 5 MG TABLET PO PRN (23:39)
[2016-11-09] VITALS: BP 96/59
[2016-11-09 04:00] VITALS: BP 98/59
[2016-11-09] MEDS: PIPERACILLIN /TAZOBACTAM 3.375 G in IV D5W 50 ML IV SCH ×2 (05:21→11:38)
[2016-11-09 06:28] LABS: BASOPHILS % (AUTO) 0.1 % (0.0-2.0); EOSINOPHILS % (AUTO) 0.2 % (0.0-6.0); HEMATOCRIT 36 % (39-51); HEMOGLOBIN 11.7 g/dL (13.5-17.5); LYMPHOCYTES # (AUTO) 2.1 /CMM (0.8-4.8); LYMPHOCYTES % (AUTO) 23.8 % (20.0-44.0); MEAN CORPUSCULAR HEMOGLOBIN 30 PG (26.0-33.0); MEAN CORPUSCULAR HGB CONC 33 g/dl (31.0-36.0); MEAN CORPUSCULAR VOLUME 90 fL (80-96); MONOCYTES # (AUTO) 0.6 /CMM (0.1-1.30); MONOCYTES % (AUTO) 6.7 % (2.0-12.0); NEUTROPHILS # (AUTO) 6.1 /CMM (1.8-8.9); NEUTROPHILS % (AUTO) 69.2 % (43.0-81.0); PLATELET COUNT (AUTO) 171 /CMM (150-450); RDW COEFFICIENT OF VARIATION 13.7 (11.5-15.0); RED BLOOD CELL COUNT(AUTO) 3.97 MIL/uL (4.5-6.0); WHITE BLOOD COUNT (AUTO) 8.8 K/uL (4.3-11.0)
--- NOTE | 2016-11-09 06:35 | NUR ---
RN MEDICATION CLOSING NOTE PT REMAINED STABLE DURING SHIFT. BILATERAL SOFT WRIST RESTRAINTS TAKEN OFF AND SKIN ASSESSMENT PERFORMED. NO DISCOLORATION NOTED AND CAP REFILL DONE. PT BACK ON RESTRAINTS. BED ALARM ON AND IN LOWEST POSITION. NO C/O OF DISCOMFORT NOTED. A FEW EPISODES OF TRYING TO TO TAKE OFF RESTRAINTS D/T CONFUSION. ISOLATION PRECAUTIONS OBSERVED. WILL ENDORSE TO NEXT SHIFT FOR KARRIE.
--- NOTE | 2016-11-09 07:00 | NUR ---
RN NOTE RECEIVED PT ON BED, CHINESE SPEAKING ,A/Ox1, RESPIRATION EVEN AND UNLABORED, ON ONE L 02 N/C, O2 SAT WNL, WITH BILATERAL SOFT WRIST RESTRAINTS. ON TELE- SINUS RHYTHM IN 60'S . BILATERAL WRISTS ASSESSED WITH NO DISCOLORATION NOTED AND NO C/O OF PAIN OR DISCOMFORT NOTED.R UPPER ARM IV SITE CDI, JACOBSON CATHETER PATENT AND IN PLACE.SR UP x3, BED ALARM ON , ISOLATION PRECAUTIONS OBSERVED. WILL CONTINUE TO MONITOR PT CLOSELY AN NOTIFY MD FOR ANY SIGNIFICANT CHANGES
[2016-11-09 07:10] LABS: CALCIUM, SERUM 8.6 mg/dL (8.5-10.1); CARBON DIOXIDE 31 mmol/L (21-32); CHLORIDE 103 mmol/L (98-107); CREATININE 0.9 mg/dL (0.6-1.3); GLUCOSE 113 mg/dL (74-106); MAGNESIUM 1.8 mg/dL (1.8-2.4); PHOSPHORUS 2.1 mg/dL (2.5-4.9); POTASSIUM 3.3 mmol/L (3.5-5.1); SODIUM SERUM 142 mmol/L (136-145); UREA NITROGEN, BLOOD 21 mg/dL (7-18)
[2016-11-09] MEDS ORDERED: NITR-84 PO (07:22)
[2016-11-09] MEDS ORDERED: POTASSIUM PHOSPHATE MM 15 MMOL in IV D5W 250 ML IV SCH (07:30)
[2016-11-09] MEDS ORDERED: POTASSIUM CHLORIDE 20 MEQ TAB.PRT.SR PO ONE (07:30)
[2016-11-09 08:00] VITALS: BP 133/61
[2016-11-09 08:15] VITALS: BP_SYST 130; BP_SYST 133; BP_SYST 134; BP_DIAS 54; BP_DIAS 61; BP_DIAS 64
--- NOTE | 2016-11-09 08:15 | NUR ---
RN NOTES DR RIVERA NOTIFIED REGARDING ORTHOSTATIC BP RESULTS. NO NEW ORDER GIVEN
[2016-11-09] MEDS: PANTOPRAZOLE 40 MG TABLET.DR PO SCH (08:19)
[2016-11-09] MEDS: MEMANTINE HCL 5 MG TABLET PO SCH (08:20)
[2016-11-09] MEDS: MIDODRINE HCL (5MG) 5 MG TABLET PO SCH ×2 (08:20→12:30)
[2016-11-09] MEDS: ASPIRIN EC 325 MG TABLET.DR PO SCH (08:20)
[2016-11-09] MEDS: QUETIAPINE FUMARATE 100 MG TABLET PO SCH ×2 (08:21→12:29)
[2016-11-09] MEDS: DIVALPROEX SODIUM 125 MG CAP.SPRINK PO SCH ×2 (08:21→12:29)
[2016-11-09] MEDS: METFORMIN 500 MG TABLET PO SCH (08:21)
[2016-11-09] MEDS: BRIMONIDINE TARTRATE OPHT SOLN 5 ML BOTTLE EACHEYE SCH (08:22)
[2016-11-09] MEDS: DONEPEZIL 5 MG TABLET PO SCH (08:32)
[2016-11-09] MEDS ORDERED: SECONDARY IV SET 1 EA INFUS.SET MC ONE (08:53)
[2016-11-09] MEDS: POTASSIUM PHOSPHATE MM 7.5 MMOL in IV D5W 100 ML IV SCH ×2 (08:58→12:01)
[2016-11-09] MEDS ORDERED: HYDROCORTISONE SOD SUCCINATE 100 MG/2 ML VIAL IV SCH (09:00)
[2016-11-09] MEDS ORDERED: IV SET PRIMARY PUMP SET 1 EA INFUS.SET MC ONE (11:35)
--- NOTE | 2016-11-09 15:00 | NUR ---
RN NOTES REPORT GIVEN TO SN[facility], PT KAVON HORNER D/KAUR PER DR RIVERA ORDER .
[2016-11-09 16:00] VITALS: BP 105/61
--- NOTE | 2016-11-09 17:04 | NUR ---
RN NOTES REPORT GIVEN TO EMT PERSONAL. SKIN DISCHARGE PHOTO TAKEN , R UPPER ARM IV D/KAUR ,RESTRAIN REMOVED , PT LEFT THE FLOOR TO MAIN ENTRANCE ACCOMPANIED BY EMT PERSONAL IN STABLE CONDITION ,
[2016-11-09] MEDS ORDERED: AMOXICILLIN TRIHYDRATE 250 MG CAPSULE PO SCH (21:00)
== END 2016-11-09 17:05 | DRG 917 ==
LOC: ER 13:01 → TELE1 15:35 → TELE-TD 15:58 → TELE1 10-31 21:38 → MEDSG1 11-01 09:14 → MEDSG2 11-05 09:43 → MEDSG1 11-05 09:51 → MEDSG2 11-05 09:58 → TELE1 11-05 17:33 → TELE-TD 11-05 17:55 → TELE1 11-07 13:37 → MEDSG1 11-09 10:20
PROVIDERS: ADMIT Internal Medicine; ATTEND Internal Medicine
DX: T50.901A Poisoning by unspecified drugs, medicaments and biological substances, accidental (unintentional), initial encounter (principal); G92 Toxic encephalopathy; E43 Unspecified severe protein-calorie malnutrition; J96.00 Acute respiratory failure, unspecified whether with hypoxia or hypercapnia; D68.59 Other primary thrombophilia; N39.0 Urinary tract infection, site not specified; Z68.1 Body mass index [BMI] 19.9 or less, adult; F03.90 Unspecified dementia, unspecified severity, without behavioral disturbance, psychotic disturbance, mood disturbance, and anxiety; I48.91 Unspecified atrial fibrillation; I10 Essential (primary) hypertension; E78.5 Hyperlipidemia, unspecified; K21.9 Gastro-esophageal reflux disease without esophagitis; E11.9 Type 2 diabetes mellitus without complications; Z66 Do not resuscitate; Z79.01 Long term (current) use of anticoagulants; Z79.899 Other long term (current) drug therapy; H40.9 Unspecified glaucoma; B95.2 Enterococcus as the cause of diseases classified elsewhere; E83.42 Hypomagnesemia; F39 Unspecified mood [affective] disorder; F29 Unspecified psychosis not due to a substance or known physiological condition; Z16.21 Resistance to vancomycin; R13.10 Dysphagia, unspecified; R62.7 Adult failure to thrive; M62.50 Muscle wasting and atrophy, not elsewhere classified, unspecified site; I95.9 Hypotension, unspecified; Y92.89 Other specified places as the place of occurrence of the external cause
CPT/HCPCS: 36415; 36600; 70450-TC; 71010-TC; 80048-TC; 80053-TC; 80061-TC; 80076-TC; 80164-TC; 80305; 81000-TC; 82140-TC; 82533; 82962-TC; 83735-TC; 84100-TC; 84443-TC; 84484-TC; 85025-TC; 85730-TC; 87040-TC; 87081-TC; 87086-TC; 87186-TC; 92611-TC; 93307-TC; 94799-TC; 97001-TC; 97116-TC; 97530-TC; A4606; G0480; J1265; J1720; J2310; J2543; J3370; J3475; J3490; J7030; J7040; J7050; J7060; Z7610